=== PATIENT | female | born 1945 | race African-American/Black ===

== ENCOUNTER 2017-10-17 09:14 | Emergency (ER) | payer MEDICARE ==
[2017-10-17] MEDS ORDERED: IPRATROPIUM/ALBUTEROL 0.5-2.5 MG/3 ML AMPUL NEB ONE (09:35)
--- NOTE | 2017-10-17 09:40 | ER Document Report ---
ED Medical Screen (RME) - General Chief Complaint: Breathing Difficulty Stated Complaint: DIFFICULTY BREATHING Time Seen by Provider: 10/17/17 09:30 Mode of Arrival: Ambulatory Information source: Patient Notes: 72 yr old female presents with complaints of sob productive yellow cough over the past 5 days, admits to wheezing initial O2 was 92% but recheck noted 98% denies chest pain I have greeted and performed a rapid initial assessment of this patient. A comprehensive ED assessment and evaluation of the patient, analysis of test results and completion of the medical decision making process will be conducted by additional ED providers. PHYSICAL EXAMINATION: GENERAL: Well-appearing, well-nourished and in no acute distress. HEAD: Atraumatic, normocephalic. EYES: Pupils equal round extraocular movements intact, conjunctiva are normal. ENT: Nares patent NECK: Normal range of motion LUNGS: wheezing all throughout Musculoskeletal: Normal range of motion NEUROLOGICAL: Normal speech, normal gait. PSYCH: Normal mood, normal affect. SKIN: Warm, Dry, normal turgor, no rashes or lesions noted. - Related Data Allergies/Adverse Reactions: codeine Allergy (Verified 10/17/17 09:17) Past Medical History - Social History Chew tobacco use (# tins/day): No Frequency of alcohol use: None Drug Abuse: None - Past Medical History Cardiac Medical History: Reports: Hx Hypercholesterolemia, Hx Hypertension Pulmonary Medical History: Reports: Hx Bronchitis Renal/ Medical History: Denies: Hx Peritoneal Dialysis Musculoskeltal Medical History: Reports Hx Arthritis Physical Exam - Vital signs Vitals: Temp Pulse Resp BP Pulse Ox 98.2 F 80 15 153/93 H 95 10/17/17 09:20 10/17/17 09:20 10/17/17 09:20 10/17/17 09:20 10/17/17 09:20 Course - Vital Signs Vital signs: Temp Pulse Resp BP Pulse Ox 98.2 F 80 15 153/93 H 95 10/17/17 09:20 10/17/17 09:20 10/17/17 09:20 10/17/17 09:20 10/17/17 09:20
--- NOTE | 2017-10-17 10:04 | RADIOLOGY REPORT (SQ) ---
EXAM DESCRIPTION: CHEST SINGLE VIEW COMPLETED DATE/TIME: 10/17/2017 9:46 am REASON FOR STUDY: sob, hypoxemia COMPARISON: None. EXAM PARAMETERS: NUMBER OF VIEWS: One view. TECHNIQUE: Single frontal radiographic view of the chest acquired. RADIATION DOSE: NA LIMITATIONS: None. FINDINGS: LUNGS AND PLEURA: Questionable minimal increased density on the right raising the possibil ity of pneumonia. Remainder lungs are clear. No effusions. MEDIASTINUM AND HILAR STRUCTURES: No masses. Contour normal. HEART AND VASCULAR STRUCTURES: Cardiac silhouette is at the upper limits of normal in size. Vasculat ure is within normal limits. BONES: No acute findings. HARDWARE: None in the chest. OTHER: No other significant finding. IMPRESSION: Questionable minimal increased density on the right raising the possibility of pneumonia . TECHNICAL DOCUMENTATION: JOB ID: [id number] [employer]- All Rights Reserved Reading location - IP/workstation name: [email or web address]
[2017-10-17 10:18] LABS: ABSOLUTE EOSINOPHILS # (AUTO) 0.2 10^3/uL (0.0-0.6); ABSOLUTE LYMPHOCYTES (AUTO) 2.1 10^3/uL (0.5-4.7); ABSOLUTE MONOCYTES (AUTO) 0.5 10^3/uL (0.1-1.4); ABSOLUTE NEUT (AUTO) 2.3 10^3/uL (1.7-8.2); BASOPHILS % (AUTO) 0.8 % (0-2); HEMOGLOBIN 13.2 g/dL (12.0-15.5); LYMPHOCYTES % (AUTO) 41.5 % (13-45); MEAN CORPUSCULAR HEMOGLOBIN 27.6 pg (27.0-33.4); MEAN CORPUSCULAR VOLUME 84 fl (80-97); MONOCYTES % (AUTO) 9.8 % (3-13); PLATELET COUNT 212 10^3/uL (150-450); RED BLOOD COUNT 4.77 10^6/uL (3.72-5.28); RED CELL DISTRIBUTION WIDTH 14.7 % (11.5-14.0); SEGMENTED NEUTROPHILS % (AUTO) 44.9 % (42-78); TOTAL CELLS COUNTED % (AUTO) 100 %
[2017-10-17 10:24] LABS: APPEARANCE,URINE CLEAR; BILIRUBIN,URINE NEGATIVE (NEGATIVE); COLOR,URINE STRAW; GLUCOSE, URINE NEGATIVE (NEGATIVE); KETONES,URINE NEGATIVE (NEGATIVE); LEUKOCYTE ESTERASE,URINE TRACE (NEGATIVE); NITRITE,URINE NEGATIVE (NEGATIVE); PROTEIN,URINE NEGATIVE (NEGATIVE); URINE SPECIFIC GRAVITY 1.014; UROBILINOGEN,URINE NEGATIVE mg/dL (<2.0)
[2017-10-17 10:36] VITALS: BP 140/67
[2017-10-17 10:39] LABS: ALANINE AMINOTRANSFERASE 25 U/L (9-52); ALBUMIN 4.5 g/dL (3.5-5.0); ALKALINE PHOSPHATASE 78 U/L (38-126); ANION GAP 13 (5-19); ASPARTATE AMINO TRANSFERASE 23 U/L (14-36); BILIRUBIN,DIRECT 0.3 mg/dL (0.0-0.4); BILIRUBIN,TOTAL 0.5 mg/dL (0.2-1.3); BLOOD UREA NITROGEN 19 mg/dL (7-20); CALCIUM 10.6 mg/dL (8.4-10.2); CARBON DIOXIDE 26 mmol/L (22-30); CHLORIDE 106 mmol/L (98-107); CREATINE KINASE 72 U/L (30-135); GLUCOSE 118 mg/dL (75-110); POTASSIUM 4.4 mmol/L (3.6-5.0); TOTAL PROTEIN 7.5 g/dL (6.3-8.2)
[2017-10-17 10:51] LABS: NT PRO BNP 54 pg/mL (5-900); TROPONIN I < 0.012 ng/mL
--- NOTE | 2017-10-17 10:53 | ER Document Report ---
ED Respiratory Problem - General Chief Complaint: Breathing Difficulty Stated Complaint: DIFFICULTY BREATHING Time Seen by Provider: 10/17/17 09:30 Mode of Arrival: Ambulatory Notes: Patient is here because she has been experiencing a "terrible cold" for the past 6 or 7 days. She has had a productive cough, headache, sinus congestion. Has had some chills, but does not know if she has had any fever. Has had occasional chest pains during this week. Seems to be short of breath when she coughs. No history of blood clots. Patient has a history of hypertension and high cholesterol and prediabetic, but no history of any heart disease. Does not smoke. - Related Data Allergies/Adverse Reactions: codeine Allergy (Verified 10/17/17 09:17) Past Medical History - General Information source: Patient - Social History Smoking Status: Never Smoker Chew tobacco use (# tins/day): No Frequency of alcohol use: None Drug Abuse: None Family History: Reviewed & Not Pertinent Patient has suicidal ideation: No Patient has homicidal ideation: No - Past Medical History Cardiac Medical History: Reports: Hx Hypercholesterolemia, Hx Hypertension Pulmonary Medical History: Reports: Hx Bronchitis Musculoskeltal Medical History: Reports Hx Arthritis Review of Systems - Review of Systems Notes: REVIEW OF SYSTEMS: CONSTITUTIONAL : Denies fever. EENT: Other than sinus congestion, patient denies eye, ear, nose or mouth or throat pain or other symptoms. CARDIOVASCULAR: Denies chest pain. RESPIRATORY: See HPI. GASTROINTESTINAL: Denies abdominal pain or nausea, vomiting, or diarrhea. GENITOURINARY: Denies difficulty or painful urinating, urinary frequency, blood in urine. MUSCULOSKELETAL: Denies back or neck pain. Denies joint pain or swelling. Denies swelling or pain of lower extremities.. SKIN: Denies rash or skin lesions. NEUROLOGICAL: Denies LOC or altered mental status. Denies headache. Denies sensory loss or motor deficits. ALL OTHER SYSTEMS REVIEWED AND NEGATIVE. Physical Exam - Vital signs Vitals: Temp Pulse Resp BP Pulse Ox 98.2 F 80 15 153/93 H 92 10/17/17 09:20 10/17/17 09:20 10/17/17 09:20 10/17/17 09:20 10/17/17 09:20 Interpretation: Normal - Notes Notes: PHYSICAL EXAMINATION: GENERAL: Well-appearing, in no acute distress. Vital signs are all essentially normal. HEAD: Atraumatic, normocephalic. EYES: Pupils equal round and reactive to light, extraocular movements intact. ENT: oropharynx clear without exudates. Moist mucous membranes. NECK: Normal range of motion, supple. LUNGS: Breath sounds clear and equal bilaterally. No wheezes. HEART: Regular rate and rhythm without murmurs. ABDOMEN: Soft, nontender. No guarding or rebound. No masses. BACK: No tenderness throughout entire back. EXTREMITIES: Normal range of motion without pain. Negative Homans bilaterally. NEUROLOGICAL: Normal speech, normal gait. Normal sensory, motor, and reflex exams. Awake, alert, and oriented x3. Cranial nerves normal. PSYCH: Normal mood, normal affect. SKIN: Warm, dry, no rashes. Course - Vital Signs Vital signs: Temp Pulse Resp BP Pulse Ox 98.2 F 80 14 140/67 H 96 10/17/17 09:20 10/17/17 09:20 10/17/17 10:04 10/17/17 10:04 10/17/17 10:36 - Laboratory Result Diagrams: 10/17/17 09:50 10/17/17 09:50 Laboratory results interpreted by me: 10/17/17 10/17/17 10/17/17 09:41 09:50 09:50 RDW 14.7 H Est GFR (Non-Af Amer) 50 L Glucose 118 H Calcium 10.6 H Ur Leukocyte Esterase TRACE H - Diagnostic Test Radiology reviewed: Image reviewed, Reports reviewed - Chest x-ray shows questionable minimal increased density in the right raising possibility of pneumonia, according to the radiologist. - EKG Interpretation by [facility] EKG shows normal: Sinus rhythm Rate: Normal Rhythm: NSR Voltage: Consistant with LVH Discharge - Discharge Clinical Impression: Pneumonia Condition: Stable Disposition: HOME, SELF-CARE Additional Instructions: PNEUMONIA: Your examination indicates that you have pneumonia. This is an infection of the lung tissue, usually caused by bacteria or a virus. Symptoms include cough, fever, shaking chills, chest pain, shortness of breath, and coughing up bloody sputum. Treatment for bacterial pneumonia includes rest, antibiotics for 10 to 14 days, increasing your clear liquid intake, a cool mist humidifier at your bedside, and fever medication. Often, a repeat chest X-ray is performed in a few weeks--even if you feel better--to ascertain whether the infection has completely resolved and no underlying lung problem is present. You should call the physician if you develop persistent vomiting, high fever that does not respond to fever medication, increasing shortness of breath , confusion, or lethargy. Also, failure to improve within two to three days is an indication for re-examination. ANTIBIOTIC THERAPY: You have been given an antibiotic prescription. It's important that you take all the medication, unless instructed otherwise by your physician. Failure to complete the entire course can result in relapse of your condition. Common side effects of antibiotics include nausea, intestinal cramping, or diarrhea. Women may develop vaginal yeast infections, and babies can get yeast (thrush) in the mouth following the use of antibiotics. Contact your physician if you develop significant side effects from this medication. Allergy to this antibiotic can result in hives, wheezing, faintness, or itching. If symptoms of allergy occur, stop the medication and call the doctor. AZITHROMYCIN: Azithromycin (Zithromax) is a broad spectrum antibiotic in the same class as erythromycin. It can treat a variety of bacterial infections, but is most frequently used for respiratory infections. Azithromycin is extremely long-lasting. It accumulates in body tissues and continues to kill bacteria for many days. In order to improve absorption, Azithromycin should be taken at least one hour before or two hours after a meal. It does not have the same strong tendency to upset the stomach as erythromycin and is usually very well tolerated. Patients who have had a rash or other true allergic reactions to erythromycin should not take this medication. Call if you develop gastrointestinal distress, severe diarrhea, rash, hives, itching, or shortness of breath. USE OF ACETAMINOPHEN (Tylenol): Acetaminophen may be taken for pain relief or fever control. It's much safer than aspirin, offering a wider range of "safe" dosages. It is safe during . Some brand names are Tylenol, Panadol, Datril, Anacin 3, Tempra, and Liquiprin. Acetaminophen can be repeated every four hours. The following are maximum recommended dosages: WEIGHT Dose Drops Elixir Chewable( 80mg) (LBS.) drprs=droppers tsp=teaspoon >89 pounds or adults 650 mg to 900 mg Acetaminophen can be repeated every four hours. Maximum dose not to exceed 4000 mg a day. These maximum recommended dosages are slightly higher than the dosages written on the product container, but these dosages are very safe and below the toxic dosage for acetaminophen. FOLLOW-UP CARE: If you have been referred to a physician for follow-up care, call the physician s office for an appointment as you were instructed or within the next two days. If you experience worsening or a significant change in your symptoms, notify the physician immediately or return to the Emergency Department at any time for re-evaluation. Prescriptions: Azithromycin [Zithromax 250 mg Tablet] 250 mg PO ASDIR PRN #6 tablet PRN Reason:
--- NOTE | 2017-10-17 15:50 | EKG REPORT ---
SEVERITY:- ABNORMAL ECG - SINUS RHYTHM LEFT VENTRICULAR HYPERTROPHY : Confirmed by: Navarro Thurman 17-Oct-2017 15:50:19
== END 2017-10-17 11:37 | disposition home or self-care (01) ==
LOC: ER 09:14
DX: J18.9 Pneumonia, unspecified organism (principal); R05 Cough; R51 Headache; R09.81 Nasal congestion; R68.83 Chills (without fever); R07.9 Chest pain, unspecified; I10 Essential (primary) hypertension; Z88.5 Allergy status to narcotic agent
CPT/HCPCS: 93005; 94640; 99285; 36415; 87040; 82553; 82550; 85025; 80053; 81001; 84484; 83880; 71045; 93010; A9270; J7620

== ENCOUNTER 2018-01-29 11:36 | Emergency (ER) | payer MEDICARE ==
[2018-01-29] MEDS ORDERED: IBUPROFEN 800 MG TABLET PO ONE (11:50)
--- NOTE | 2018-01-29 11:56 | ER Document Report ---
ED Hand/Wrist Injury - General Chief Complaint: Finger Injury Stated Complaint: FINGER PAIN Time Seen by Provider: 01/29/18 11:45 Mode of Arrival: Ambulatory Information source: Patient Notes: 72-year-old female presents to ED for complaint of pain and swelling to the third and fourth visit finger on the right hand. She states she was trying to shut the garage door when her finger got caught in the slots. Fingers are very bruised and swollen and tender from first PIP joint to the end of the finger. Patient is alert and oriented respirations regular and unlabored speaking in full sentences walks with a even steady gait. TRAVEL OUTSIDE OF THE [place] IN LAST 30 DAYS: No - HPI Injury to: Middle finger, Ring finger Onset: Yesterday Where: Home, Outdoors Timing: Still present Quality of pain: Pressure, Sharp, Throbbing Severity: Moderate Pain Level: 4 Context: Crush - Related Data Allergies/Adverse Reactions: codeine Allergy (Verified 01/29/18 11:37) Past Medical History - General Information source: Patient - Social History Smoking Status: Never Smoker Cigarette use (# per day): No Chew tobacco use (# tins/day): No Smoking Education Provided: No Frequency of alcohol use: None Drug Abuse: None Occupation: retired Lives with: Alone Family History: Reviewed & Not Pertinent Patient has suicidal ideation: No Patient has homicidal ideation: No - Past Medical History Cardiac Medical History: Reports: Hx Hypercholesterolemia, Hx Hypertension Pulmonary Medical History: Reports: Hx Bronchitis, Hx Pneumonia EENT Medical History: Reports: None Neurological Medical History: Reports: None Endocrine Medical History: Reports: None Renal/ Medical History: Reports: Hx Kidney Stones Malignancy Medical History: Reports: None GI Medical History: Reports: None Musculoskeletal Medical History: Reports Hx Arthritis Skin Medical History: Reports None Psychiatric Medical History: Reports: None Traumatic Medical History: Reports: None Infectious Medical History: Reports: None Past Surgical History: Reports: Hx Hysterectomy Review of Systems - Review of Systems Constitutional: No symptoms reported EENT: No symptoms reported Cardiovascular: No symptoms reported Respiratory: No symptoms reported Gastrointestinal: No symptoms reported Genitourinary: No symptoms reported Female Genitourinary: No symptoms reported Musculoskeletal: Other - Very dark bruised third and fourth finger on right hand from the first PIP down to the tip of the finger Skin: No symptoms reported Hematologic/Lymphatic: No symptoms reported Neurological/Psychological: No symptoms reported -: Yes All other systems reviewed and negative Physical Exam - Vital signs Vitals: Temp Pulse Resp BP Pulse Ox 97.7 F 61 16 162/64 H 95 01/29/18 11:43 01/29/18 11:43 01/29/18 11:43 01/29/18 11:43 01/29/18 11:43 Interpretation: Normal - General General appearance: Appears well, Alert - HEENT Head: Normocephalic, Atraumatic Eyes: Normal Pupils: PERRL - Respiratory Respiratory status: No respiratory distress Chest status: Nontender Breath sounds: Normal Chest palpation: Normal - Cardiovascular Rhythm: Regular Heart sounds: Normal auscultation Murmur: No - Abdominal Inspection: Normal Distension: No distension Bowel sounds: Normal Tenderness: Nontender Organomegaly: No organomegaly - Back Back: Normal, Nontender - Extremities General upper extremity: Normal ROM, Normal temperature General lower extremity: Normal inspection, Nontender, Normal color, Normal ROM , Normal temperature, Normal weight bearing. No: Brenden's sign Hand: Tender, Ecchymosis - From the first PIP of the third and fourth finger to the tip of the finger, Nail injury, No evidence of human bite - Neurological Neuro grossly intact: Yes Cognition: Normal Orientation: AAOx4 Florinda Coma Scale Eye Opening: Spontaneous Florinda Coma Scale Verbal: Oriented Florinda Coma Scale Motor: Obeys Commands Florinda Coma Scale Total: 15 Speech: Normal Motor strength normal: LUE, RUE, LLE, RLE Sensory: Normal - Psychological Associated symptoms: Normal affect, Normal mood - Skin Skin Temperature: Warm Skin Moisture: Dry Skin Color: Normal Course - Re-evaluation Re-evalutation: 01/29/18 20:36 X-ray was negative to the right hand. There are no fractures or other bony abnormalities noted. She did have very contused third and fourth fingers to the right hand. I did have Dr. Stokes come and look at the fingers as they were so dark. Stated she just needed to elevate and ice the fingers and follow-up with orthopedics if pain became unbearable. There is no subungual hematoma noted on either finger. Patient was treated with ibuprofen in the emergency room and discharged home with instructions for elevation ice ibuprofen for her pain and follow-up with primary doctor and orthopedics. - Vital Signs Vital signs: Temp Pulse Resp BP Pulse Ox 97.4 F 55 L 20 181/59 H 95 01/29/18 13:09 01/29/18 13:09 01/29/18 13:09 01/29/18 13:09 01/29/18 13:09 - Diagnostic Test Radiology reviewed: Image reviewed, Reports reviewed Discharge - Discharge Clinical Impression: crush to right 3rd finger, crushed 4th right finger Condition: Stable Disposition: HOME, SELF-CARE Additional Instructions: Crush Injury Your injury caused a crushing of the tissues. Crush injuries can include skin damage, bleeding within the tissues (hematoma), and muscle injury. Sometimes the crushing damages a nerve or artery. This usually heals without surgery. If there's a break in the skin with the crushing, it's more prone to infection and takes longer to heal than other cuts. Crush injuries may take a long time to heal. In severe cases, there may be actual of tissues -- for example, the skin may turn black and become a "scab." Crush injuries vary in the amount of pain they cause, and in the length of time required for healing. Typically, the area will become bruised, and will remain painful to touch for two or three weeks. However, most patients are back to working and playing within a few days. After the initial period of rest, elevation, and cold-packs, your symptoms (together with the doctor's recommendations) will determine how rapidly you can get back to full activity. Usually this means "do what feels okay, but don't do things that hurt." If re-examination was recommended, it's important to follow up as instructed. Call the doctor or return any time if pain increases, if swelling becomes severe, if you develop numbness or weakness in an injured extremity, or if any other alarming symptoms occur. ICE & ELEVATION: Apply ice packs frequently against the painful area. Many different schedules are recommended, such as "20 minutes on, 20 minutes off" or "one hour ice, two hours rest." If you need to work, you may need to go longer between ice treatments. You should plan to have the area ice packed AT LEAST one- fourth of the time. The ice should be applied over the wrap, tape, or splint, or over a layer of cloth -- not directly against the skin. Some ice bags have a built-in cloth and can be put directly on the skin. Your injured part should be elevated as much as possible over the next 48 hours. Try to keep the injury above the level of the heart. Avoid use of the injured area. Elevation and rest will decrease the swelling. USE OF [id number] IBUPROFEN: Ibuprofen (Advil, Nuprin, Medipren, Motrin IB) is a medication for fever and pain control. In addition, it has anti- inflammatory effects which may be beneficial, especially in the treatment of injuries. It's best to take ibuprofen with food. Persons with ulcer disease or allergy to aspirin should notify their physician of this before taking ibuprofen. Ibuprofen can be given every four to six hours, for a total of four doses daily. Age Pain or fever dose Antiinflammatory dose 6-8 yr 200 mg (1 tab) 200 mg (1 tab) 9-11 yr 200 mg (1 tab) 200-400 mg (1-2 tab) 11-14 yr 200-400 mg (1-2 tab) 400 mg (2 tab) 15-adult 400 mg (2 tab) 600 mg (3 tab) Acetaminophen Acetaminophen may be taken for pain relief or fever control. It's much safer than aspirin, offering a wider range of "safe" dosages. It is safe during . Some brand names are Tylenol, Panadol, Datril, Anacin 3, Tempra, and Liquiprin. Acetaminophen can be repeated every four hours. The following are maximum recommended dosages: WEIGHT Dose Drops Elixir Chewable( 80mg) (LBS.) drprs=droppers tsp=teaspoon 6 40 mg .4 ml (1/2) 6-11 80 mg .8 ml (full) 1/2 tsp 1 tab 12-16 120 mg 1 1/2 drprs 3/4 tsp 1 1/2 tabs 17-23 160 mg 2 drprs 1 tsp 2 tabs 24-30 240 mg 3 drprs 1 1/2 tsp 3 tabs 30-35 320 mg 2 tsp 4 tabs 36-41 360 mg 2 1/4 tsp 4 1 /2 tabs 42-47 400 mg 2 1/2 tsp 5 tabs 48-53 480 mg 3 tsp 6 tabs 54-59 520 mg 3 1/4 tsp 6 1 /2 tabs 60-64 560 mg 3 1/2 tsp 7 tabs 65-70 600 mg 3 3/4 tsp 7 1 /2 tabs 71-76 640 mg 4 tsp 8 tabs 77-82 720 mg 4 1/2 tsp 9 tabs 83-88 800 mg 5 tsp 10 tabs >89 pounds or adults 650 mg to 900 mg Acetaminophen can be repeated every four hours. Maximum daily dose not to exceed 4000 mg. These maximum recommended dosages are slightly higher than the dosages written on the product container, but these dosages are very safe and well below the toxic dosage for acetaminophen. FOLLOW-UP CARE: If you have been referred to a physician for follow-up care, call the physician s office for an appointment as you were instructed or within the next two days. If you experience worsening or a significant change in your symptoms, notify the physician immediately or return to the Emergency Department at any time for re-evaluation. Referrals: DILCIA PISANO MD [Primary Care Provider] - Follow up as needed CHAPIS SALCIDO MD [ACTIVE STAFF] - Follow up as needed
--- NOTE | 2018-01-29 12:41 | RADIOLOGY REPORT (SQ) ---
EXAM DESCRIPTION: HAND RIGHT 3 VIEWS COMPLETED DATE/TIME: 01/29/2018 12:22 pm REASON FOR STUDY: injury garage door caught 3 and 4th finger 3rd and 4th finger smashed in garage do or today COMPARISON: None. EXAM PARAMETERS: NUMBER OF VIEWS: Three views. TECHNIQUE: AP, lateral and oblique radiographic images acquired of the right hand. LIMITATIONS: None. FINDINGS: MINERALIZATION: Normal. BONES: No acute fracture or dislocation. No worrisome bone lesions. JOINTS: No effusions. SOFT TISSUES: No soft tissue swelling. No foreign body. OTHER: No other significant finding. IMPRESSION: NEGATIVE STUDY OF THE RIGHT HAND. NO RADIOGRAPHIC EVIDENCE OF ACUTE INJURY. TECHNICAL DOCUMENTATION: JOB ID: [id number] [employer]- All Rights Reserved Reading location - IP/workstation name: [email or web address]
[2018-01-29 13:13] VITALS: BP 181/59
== END 2018-01-29 13:13 | disposition home or self-care (01) ==
LOC: ER 11:36
DX: S67.192A Crushing injury of right middle finger, initial encounter (principal); S67.194A Crushing injury of right ring finger, initial encounter; W23.1XXA Caught, crushed, jammed, or pinched between stationary objects, initial encounter; Y92.099 Unspecified place in other non-institutional residence as the place of occurrence of the external cause; E78.00 Pure hypercholesterolemia, unspecified; I10 Essential (primary) hypertension; Z88.6 Allergy status to analgesic agent
CPT/HCPCS: 99283; 73130; A9270

== ENCOUNTER 2018-07-19 20:17 | Inpatient (IN) | payer MEDICARE ==
[2018-07-19] MEDS ORDERED: FENTANYL CITRATE INJ/PF 100 MCG/2 ML AMPUL IV ONE ×2 (21:02→23:32)
[2018-07-19 21:25] LABS: APPEARANCE,URINE CLEAR; BILIRUBIN,URINE NEGATIVE (NEGATIVE); COLOR,URINE YELLOW; GLUCOSE, URINE NEGATIVE (NEGATIVE); KETONES,URINE NEGATIVE (NEGATIVE); LEUKOCYTE ESTERASE,URINE MODERATE (NEGATIVE); NITRITE,URINE NEGATIVE (NEGATIVE); PROTEIN,URINE NEGATIVE (NEGATIVE); URINE SPECIFIC GRAVITY 1.013; UROBILINOGEN,URINE NEGATIVE mg/dL (<2.0)
[2018-07-19 21:29] LABS: ABSOLUTE EOSINOPHILS # (AUTO) 0.1 10^3/uL (0.0-0.6); ABSOLUTE LYMPHOCYTES (AUTO) 1.9 10^3/uL (0.5-4.7); ABSOLUTE MONOCYTES (AUTO) 0.7 10^3/uL (0.1-1.4); BASOPHILS % (AUTO) 0.4 % (0-2); EOSINOPHILS % (AUTO) 1.2 % (0-6); HEMATOCRIT 39.1 % (36.0-47.0); LYMPHOCYTES % (AUTO) 24.5 % (13-45); MEAN CORPUSCULAR HEMOGLOBIN 28.1 pg (27.0-33.4); MEAN CORPUSCULAR HGB CONC 33.2 g/dL (32.0-36.0); MEAN CORPUSCULAR VOLUME 85 fl (80-97); MONOCYTES % (AUTO) 9.2 % (3-13); PLATELET COUNT 216 10^3/uL (150-450); RED BLOOD COUNT 4.62 10^6/uL (3.72-5.28); RED CELL DISTRIBUTION WIDTH 14.6 % (11.5-14.0); SEGMENTED NEUTROPHILS % (AUTO) 64.7 % (42-78); TOTAL CELLS COUNTED % (AUTO) 100 %; WHITE BLOOD COUNT 7.7 10^3/uL (4.0-10.5)
[2018-07-19 21:48] LABS: ALANINE AMINOTRANSFERASE 21 U/L (9-52); ALKALINE PHOSPHATASE 77 U/L (38-126); ANION GAP 9 (5-19); ASPARTATE AMINO TRANSFERASE 20 U/L (14-36); BILIRUBIN,TOTAL 0.3 mg/dL (0.2-1.3); BLOOD UREA NITROGEN 16 mg/dL (7-20); CALCIUM 10.5 mg/dL (8.4-10.2); CARBON DIOXIDE 28 mmol/L (22-30); CHLORIDE 105 mmol/L (98-107); GLUCOSE 113 mg/dL (75-110); LIPASE 50.2 U/L (23-300); TOTAL PROTEIN 6.9 g/dL (6.3-8.2)
--- NOTE | 2018-07-19 22:46 | RADIOLOGY REPORT (SQ) ---
EXAM DESCRIPTION: CT ABDOMEN PELVIS WITH IV CONTRAST COMPLETED DATE/TME: 07/19/2018 21:02 CLINICAL HISTORY: 72 years, Female, RLQ LLQ pain COMPARISON: None. TECHNIQUE: 373 Images stored on PACS. All CT scanners at this facility use dose modulation, iterative reconstruction, and/or weight based dosing when appropriate to reduce radiation dose to as low as reasonably achievable (ALARA). [facility]: Dose Right [facility]: CareDose [facility]: Dose Right [facility]: Teradose 4D [facility]: CareParent LIMITATIONS: None. FINDINGS: Visualized lung bases are unremarkable. Osseous structures are grossly intact. The liver, spleen, adrenal glands, pancreas, right kidney are unremarkable. Cholelithiasis. Severe left renal atrophy. No gross evidence for bowel obstruction. Normal appendix. No free air or free fluid. However, there is abnormal wall thickening of the sigmoid colon with surrounding inflammatory change. Several diverticuli are noted and this likely reflects acute diverticulitis. Questionable tiny developing abscess measuring 10 x 10 mm versus an irregular area of wall thickening with enhancement. IMPRESSION: Acute sigmoid diverticulitis. Questionable tiny developing abscess, as above. Cholelithiasis. Severe left renal atrophy.. TECHNICAL DOCUMENTATION: Quality ID # [id number]: Final reports with documentation of one or more dose reduction techniques (e.g., Automated exposure control, adjustment of the mA and/or kV according to patient size, use of iterative reconstruction technique) copyright 2011 [employer]- All Rights Reserved
[2018-07-19] MEDS ORDERED: RINGERS SOLUTION,LACTATED 1,000 ML IV ONE (23:33)
[2018-07-19] MEDS ORDERED: ZOLPIDEM TARTRATE 5 MG TABLET PO PRN (23:34)
[2018-07-19] MEDS ORDERED: ACETAMINOPHEN 650 MG SUPP.RECT PR PRN (23:34)
[2018-07-19] MEDS ORDERED: MAGNESIUM HYDROXIDE SUSP 30 ML UDCUP PO PRN (23:34)
[2018-07-19] MEDS ORDERED: MAG HYDROX/AL HYDROX/SIMETH SUSP 30 ML UDCUP PO PRN (23:34)
--- NOTE | 2018-07-19 23:34 | ER Document Report ---
ED General - General Chief Complaint: Abdominal Pain Stated Complaint: SEVERE ABDOMINAL/BACK PAIN,BLOOD IN URINE Time Seen by Provider: 07/19/18 20:49 Notes: Patient 72-year-old female presents to the emergency department for 2 days of bilateral lower back pain bilateral lower quadrant abdominal pain. Patient's denying any nausea, vomiting, diarrhea, denying any fevers. Patient is admitting to some urinary frequency but is denying dysuria or vaginal discharge. Patient's denying any injury states she does have a history of kidney and dulce maria drake did not presents to the emergency department because she thought this was just her kidney stones acting up. Past medical history: Kidney stones, hypertension, hyperlipidemia Medications: Verapamil, Crestor, aspirin Allergies: Codeine, latex Surgical history: Hysterectomy TRAVEL OUTSIDE OF THE [place] IN LAST 30 DAYS: No - Related Data Allergies/Adverse Reactions: codeine Allergy (Verified 01/29/18 11:37) latex Allergy (Verified 07/19/18 20:21) Past Medical History - General Information source: Patient - Social History Smoking Status: Never Smoker Family History: Reviewed & Not Pertinent Patient has suicidal ideation: No Patient has homicidal ideation: No - Past Medical History Cardiac Medical History: Reports: Hx Hypercholesterolemia, Hx Hypertension Pulmonary Medical History: Reports: Hx Bronchitis, Hx Pneumonia Renal/ Medical History: Reports: Hx Kidney Stones. Denies: Hx Peritoneal Dialysis Musculoskeletal Medical History: Reports Hx Arthritis Past Surgical History: Reports: Hx Hysterectomy Review of Systems - Review of Systems Constitutional: See HPI EENT: No symptoms reported Cardiovascular: No symptoms reported Respiratory: No symptoms reported Gastrointestinal: See HPI Genitourinary: See HPI Female Genitourinary: No symptoms reported Musculoskeletal: No symptoms reported Skin: No symptoms reported Hematologic/Lymphatic: No symptoms reported Neurological/Psychological: No symptoms reported Physical Exam - Vital signs Vitals: Temp Pulse Resp BP Pulse Ox 98.6 F 77 15 162/77 H 96 07/19/18 20:25 07/19/18 20:25 07/19/18 20:25 07/19/18 20:25 07/19/18 20:25 - Notes Notes: GENERAL: Alert, interacts well. No acute distress. HEAD: Normocephalic, atraumatic. EYES: Pupils equal, round, and reactive to light. Extraocular movements intact. ENT: Oral mucosa moist, tongue midline. NECK: Full range of motion. Supple. Trachea midline. LUNGS: Clear to auscultation bilaterally, no wheezes, rales, or rhonchi. No respiratory distress. HEART: Regular rate and rhythm. No murmur ABDOMEN: Soft, Non-distended. Bowel sounds present in all 4 quadrants. Generalized tenderness noted right and left lower quadrants. No Linton sign not ed. EXTREMITIES: Moves all 4 extremities spontaneously. No edema, normal radial and dorsalis pedis pulses bilaterally. No cyanosis. BACK: no cervical, thoracic, lumbar midline tenderness. No saddle anesthesia, normal distal neurovascular exam. No CVA tenderness noted bilaterally NEUROLOGICAL: Alert and oriented x3. Normal speech. cranial nerves II through XII grossly intact PSYCH: Normal affect, normal mood. SKIN: Warm, dry, normal turgor. No rashes or lesions noted. Course - Re-evaluation Re-evalutation: Patient's labs show no signs of leukocytosis, no signs of anemia, patient's urine was for culture to rule out infection. Patient's CT abdomen pelvis shows acute sigmoid diverticulitis with questionable 10 mm x 10 mm abscess formation. Initially discussed this case with surgeon Dr. Constantino states he feels like this could be a medical admission. He has seen the patient in the emergency department and is available for consult. Discussed this case with the hospitalist Dr. Erwin who will admit the patient for IV antibiotics, continued pain control and repeat surgical consult if needed. Patient remains afebrile, non-tachycardic, stable for admission. - Vital Signs Vital signs: Temp Pulse Resp BP Pulse Ox 98.7 F 78 18 158/75 H 97 07/20/18 00:00 07/20/18 00:00 07/20/18 00:00 07/20/18 00:00 07/20/18 00:00 - Laboratory Result Diagrams: 07/19/18 21:20 07/19/18 21:20 Laboratory results interpreted by me: 07/19/18 07/19/18 07/19/18 20:58 21:20 21:20 RDW 14.6 H Est GFR (Non-Af Amer) 55 L Glucose 113 H Calcium 10.5 H Ur Leukocyte Esterase MODERATE H Discharge - Discharge Clinical Impression: Diverticulitis Condition: Stable Disposition: ADMITTED INPATIENT Admitting Provider: Hospitalist - Dr. Erwin Unit Admitted: Medical Floor
[2018-07-19] MEDS ORDERED: BENZONATATE 100 MG CAPSULE PO PRN (23:44)
[2018-07-19] MEDS ORDERED: ONDANSETRON 4 MG TAB.RAPDIS PO PRN (23:44)
--- NOTE | 2018-07-20 00:13 | PDOC CONSULTATION ---
Consultation Consult Date: 07/20/18 Consult reason:: diverticulitis History of Present Illness Admission Date/PCP: 07/19/18 23:37 DILCIA PISANO MD History of Present Illness: PENELOPE FOWLER is a 72 year old female with 3 or days of lower abd pain and back pain c/o chills. thought she was having a recurrrent kidney stone. Past Medical History Cardiac Medical History: Reports: Hyperlipidema, Hypertension Pulmonary Medical History: Reports: Bronchitis, Pneumonia Musculoskeltal Medical History: Reports: Arthritis Hematology: Reports: Anemia - iron deficient Past Surgical History Past Surgical History: Reports: Hysterectomy Social History Smoking Status: Never Smoker Family History Family History: Reviewed & Not Pertinent Parental Family History Reviewed: No Children Family History Reviewed: No Sibling(s) Family History Reviewed.: No Medication/Allergy Home Medications: Azithromycin [Zithromax 250 mg Tablet] 250 mg PO ASDIR PRN #6 tablet 10/17/17 Verapamil HCl [Verapamil ER] 120 mg PO DAILY 10/17/17 Azithromycin 250 mg PO DAILY #1 tablet 10/18/17 Ondansetron [Zofran Odt 4 mg Tablet] 1 - 2 tab PO Q4H PRN #15 tab.rapdis 10/18/17 Benzonatate [Tessalon Perle 100 mg Capsule] 200 mg PO Q8HP PRN #20 cap 01/04/18 Fluticasone Propionate [Flonase Nasal [place] 50 Mcg/[place] 16 gm] 1 spray NASL Q12 #1 inhaler 01/04/18 Allergies/Adverse Reactions: codeine Allergy (Verified 01/29/18 11:37) latex Allergy (Verified 07/19/18 20:21) Review of Systems Constitutional: PRESENT: weakness Respiratory: PRESENT: other - no cough, no sob Gastrointestinal: PRESENT: other - lower abd pain, no diarrhea or constipation Genitourinary: PRESENT: other - no dysuria or pneumoturia Musculoskeletal: PRESENT: back pain Integumentary: PRESENT: other - no rash, Neurological: PRESENT: other - no weakness, no headaches. Endocrine: PRESENT: other - no cold or heat intolerance Hematologic/Lymphatic: PRESENT: other - no easy brusing Physical Exam Vital Signs: Temp Pulse Resp BP Pulse Ox 98.6 F 77 15 162/77 H 96 07/19/18 20:25 07/19/18 20:25 07/19/18 20:25 07/19/18 20:25 07/19/18 20:25 Intake & Output 07/18/18 07/19/18 07/20/18 06:59 06:59 06:59 Weight 78.8 kg General appearance: PRESENT: no acute distress, mild distress Head exam: PRESENT: normocephalic Eye exam: PRESENT: conjunctiva pink, EOMI Mouth exam: PRESENT: moist Neck exam: PRESENT: full ROM Respiratory exam: PRESENT: clear to auscultation rainer Cardiovascular exam: PRESENT: RRR Pulses: PRESENT: +2 pedal pulses bilateral GI/Abdominal exam: PRESENT: other - tender lower minline and left lower quadrent no rebound tenderness, no masses Extremities exam: PRESENT: full ROM Musculoskeletal exam: PRESENT: ambulatory, full ROM Neurological exam: PRESENT: alert, awake, oriented to person, oriented to place, oriented to time, oriented to situation Psychiatric exam: PRESENT: appropriate affect Skin exam: PRESENT: dry Results Laboratory Results: 07/19/18 21:20 07/19/18 21:20 07/19/18 07/19/18 07/19/18 20:58 21:20 21:20 WBC 7.7 RBC 4.62 Hgb 13.0 Hct 39.1 MCV 85 MCH 28.1 MCHC 33.2 RDW 14.6 H Plt Count 216 Seg Neutrophils % 64.7 Lymphocytes % 24.5 Monocytes % 9.2 Eosinophils % 1.2 Basophils % 0.4 Absolute Neutrophils 5.0 Absolute Lymphocytes 1.9 Absolute Monocytes 0.7 Absolute Eosinophils 0.1 Absolute Basophils 0.0 Sodium 142.0 Potassium 4.0 Chloride 105 Carbon Dioxide 28 Anion Gap 9 BUN 16 Creatinine 0.99 Est GFR ( Amer) > 60 Est GFR (Non-Af Amer) 55 L Glucose 113 H Calcium 10.5 H Total Bilirubin 0.3 AST 20 ALT 21 Alkaline Phosphatase 77 Total Protein 6.9 Albumin 4.0 Lipase 50.2 Urine Color YELLOW Urine Appearance CLEAR Urine pH 7.0 Ur Specific [place] 1.013 Urine Protein NEGATIVE Urine Glucose (UA) NEGATIVE Urine Ketones NEGATIVE Urine Blood NEGATIVE Urine Nitrite NEGATIVE Ur Leukocyte Esterase MODERATE H Urine WBC (Auto) 10 Urine RBC (Auto) 1 Impressions: Abdomen/Pelvis CT 07/19/18 21:02 IMPRESSION: Acute sigmoid diverticulitis. Questionable tiny developing abscess, as above. Cholelithiasis. Severe left renal atrophy.. TECHNICAL DOCUMENTATION: Quality ID # [id number]: Final reports with documentation of one or more dose reduction techniques (e.g., Automated exposure control, adjustment of the mA and/or kV according to patient size, use of iterative reconstruction technique) copyright 2011 [employer] All Rights Reserved Status: Image reviewed by me - 3cm llq abscess with stranding c/w diverticular abscess no evidence of obstruction Assessment & Plan - Plan Summary Plan Summary: impression diverticular abscess, first episode no obstruction recommend admit for iv abx. if pain resolves in 1-2 days, could be discharged home with completion of 10 day course of po abx will then need contrast study (BE) in 6 wks then colonoscopy. will follow with medicine.
[2018-07-20] MEDS ORDERED: METRONIDAZOLE 500 MG/NS RTU 500 MG/100 ML RTUPB IV ONE (00:30)
[2018-07-20] MEDS ORDERED: OXYCODONE-ACETAMINOPHEN 5-325 MG TABLET PO PRN (00:44)
--- NOTE | 2018-07-20 01:02 | PDOC H&P ---
History of Present Illness Admission Date/PCP: 07/19/18 23:37 DILCIA PISANO MD Patient complains of: Abdominal pain History of Present Illness: PENELOPE FOWLER is a 72 year old female with a history of hypertension and dyslipidemia who presented to the emergency room with acute onset of lower abdominal pain mainly in the left lower quadrant with associated loose bowel movements as well as chills for the last 3 days. She denies any measured fever. She has been noticing minor bleeding with her symptoms with no melena. Upon presentation to the emergency room her blood pressure was elevated 162/77 with otherwise normal vital signs. She was afebrile. Labs showed normal CBC and her calcium was 10.5. Urinalysis showed moderate leukocyte esterase and 10 WBCs. Her abdominal pelvic CT scan revealed acute sigmoid duct colitis with possibly tiny abscess measuring 10 mm x 10 mm She was given 50 mcg of IV fentanyl and a liter bolus of IV lactated Ringer. She was ordered IV Rocephin and Flagyl. She will be admitted to medical monitored bed for further evaluation and management.. Past Medical History Cardiac Medical History: Reports: Hyperlipidema, Hypertension Pulmonary Medical History: Reports: Bronchitis, Pneumonia Musculoskeltal Medical History: Reports: Arthritis Hematology: Reports: Anemia - iron deficient Past Surgical History Past Surgical History: Reports: Hysterectomy, Tonsillectomy Social History Smoking Status: Never Smoker Frequency of Alcohol Use: None Hx Recreational Drug Use: No Family History Family History: DM, Hypertension Parental Family History Reviewed: Yes Children Family History Reviewed: Yes Sibling(s) Family History Reviewed.: Yes Medication/Allergy Home Medications: Azithromycin [Zithromax 250 mg Tablet] 250 mg PO ASDIR PRN #6 tablet 10/17/17 Verapamil HCl [Verapamil ER] 120 mg PO DAILY 10/17/17 Azithromycin 250 mg PO DAILY #1 tablet 10/18/17 Ondansetron [Zofran Odt 4 mg Tablet] 1 - 2 tab PO Q4H PRN #15 tab.rapdis 10/18/17 Benzonatate [Tessalon Perle 100 mg Capsule] 200 mg PO Q8HP PRN #20 cap 01/04/18 Fluticasone Propionate [Flonase Nasal [place] 50 Mcg/[place] 16 gm] 1 spray NASL Q12 #1 inhaler 01/04/18 Allergies/Adverse Reactions: codeine Allergy (Verified 01/29/18 11:37) latex Allergy (Verified 07/19/18 20:21) Review of Systems Review of Systems: As per history of present illness. All pertinent systems were reviewed above. Constitutional, HEENT, cardiovascular, respiratory, GI, , musculoskeletal, neuro, psychiatric, endocrine, integumentary and hematologic systems were reviewed and are otherwise negative/unremarkable except for positive findings mentioned above in the HPI. Physical Exam Vital Signs: Temp Pulse Resp BP Pulse Ox 98.6 F 77 15 162/77 H 96 07/19/18 20:25 07/19/18 20:25 07/19/18 20:25 07/19/18 20:25 07/19/18 20:25 Intake & Output 07/18/18 07/19/18 07/20/18 06:59 06:59 06:59 Weight 78.8 kg Exam: Generally: Pleasant elderly -[place] female in no acute distress Vital signs-as listed Head - atraumatic, normocephalic. Pupils - equal, round and reactive to light and accommodation. Extraocular movements are intact. No scleral icterus. Oropharynx - moist mucous membranes and tongue. No pharyngeal erythema or exudate. Neck - supple. No JVD. Carotid pulses 2+ bilaterally. No carotid bruits. No palpable thyromegaly or lymphadenopathy. Cardiovascular - regular rate and rhythm. Normal S1 and S2. No murmurs, gallops or rubs. Lungs - clear to auscultation bilaterally. Abdomen - soft with left lower quadrant tenderness without rebound tenderness guarding or rigidity. Positive bowel sounds. No palpable organomegaly or masses. Extremities - no pitting edema, clubbing or cyanosis. Neuro - grossly non-focal. Skin - no rashes. Breast, pelvic and rectal - deferred Results Laboratory Results: 07/19/18 21:20 07/19/18 21:20 07/19/18 07/19/18 07/19/18 20:58 21:20 21:20 WBC 7.7 RBC 4.62 Hgb 13.0 Hct 39.1 MCV 85 MCH 28.1 MCHC 33.2 RDW 14.6 H Plt Count 216 Seg Neutrophils % 64.7 Lymphocytes % 24.5 Monocytes % 9.2 Eosinophils % 1.2 Basophils % 0.4 Absolute Neutrophils 5.0 Absolute Lymphocytes 1.9 Absolute Monocytes 0.7 Absolute Eosinophils 0.1 Absolute Basophils 0.0 Sodium 142.0 Potassium 4.0 Chloride 105 Carbon Dioxide 28 Anion Gap 9 BUN 16 Creatinine 0.99 Est GFR ( Amer) > 60 Est GFR (Non-Af Amer) 55 L Glucose 113 H Calcium 10.5 H Total Bilirubin 0.3 AST 20 ALT 21 Alkaline Phosphatase 77 Total Protein 6.9 Albumin 4.0 Lipase 50.2 Urine Color YELLOW Urine Appearance CLEAR Urine pH 7.0 Ur Specific [place] 1.013 Urine Protein NEGATIVE Urine Glucose (UA) NEGATIVE Urine Ketones NEGATIVE Urine Blood NEGATIVE Urine Nitrite NEGATIVE Ur Leukocyte Esterase MODERATE H Urine WBC (Auto) 10 Urine RBC (Auto) 1 Impressions: Abdomen/Pelvis CT 07/19/18 21:02 IMPRESSION: Acute sigmoid diverticulitis. Questionable tiny developing abscess, as above. Cholelithiasis. Severe left renal atrophy.. TECHNICAL DOCUMENTATION: Quality ID # 436: Final reports with documentation of one or more dose reduction techniques (e.g., Automated exposure control, adjustment of the mA and/or kV according to patient size, use of iterative reconstruction technique) copyright 2011 [employer]- All Rights Reserved Assessment and Plan - Diagnosis (1) Acute diverticulitis Is this a current diagnosis for this admission?: Yes Plan: Patient will be admitted to a medical monitored bed. She will be placed on IV Cipro and Flagyl. We will follow serial hemoglobin and hematocrits. Pain ma nagement will be provided with as needed Percocet and morphine sulfate. A surgery consult with obtained and appreciated by Dr. Constantino. (2) GI bleeding Is this a current diagnosis for this admission?: Yes Plan: This is likely secondary to her diverticulosis. She will need a barium enema is recommended then colonoscopy in 6 weeks. We will follow serial hemoglobin and hematocrits while she is here. Management otherwise as above (3) Hypertension Qualifiers: Hypertension type: essential hypertension Qualified Code(s): I10 - Essential (primary) hypertension Is this a current diagnosis for this admission?: Yes Plan: She will be placed on as needed IV hydralazine and will resume her antihypertens deonna. Elevated blood pressure could be related to her pain. (4) Dyslipidemia Is this a current diagnosis for this admission?: Yes Plan: This is apparently diet managed. (5) DVT prophylaxis Is this a current diagnosis for this admission?: Yes Plan: She will be placed on SCDs. Medical prophylaxis currently contraindicated given the possibility of GI bleeding. - Time Medications reviewed and adjusted accordingly: Yes Within: within 36 hours - Inpatient Certification Medical Necessity: Need for Pain Control, Need for IV Antibiotics, Risk of Complication if Not Cared For in Hospital - Plan Summary Plan Summary: The plan of care was discussed in details with the patient. I answered all questions. The patient agreed to proceed with the above-mentioned plan. The patient is presumably full code. This note was created by [employer] software and may contain typo errors that may have not been proofread.
[2018-07-20] MEDS: NORMAL SALINE 1000 ML 1,000 ML IV PRN ×2 (01:20→17:31)
[2018-07-20] MEDS ORDERED: CEFTRIAXONE 1 GM/D5W RTU 1 GM/50 ML RTUPB IV ONE (02:00)
[2018-07-20] MEDS: HYDRALAZINE HCL INJ/PF 20 MG/1 ML SDV IV PRN (02:41)
[2018-07-20] MEDS: MORPHINE SULFATE 10 MG/ML INJ IV PRN ×3 (02:42→20:16)
[2018-07-20] MEDS ORDERED: METRONIDAZOLE 500 MG/NS RTU 0 MG/0 ML RTUPB IV ONE (03:09)
[2018-07-20] MEDS: ONDANSETRON HCL INJ/PF 4 MG/2 ML SDV IV PRN ×2 (03:19→20:16)
[2018-07-20 04:02] LABS: ABSOLUTE LYMPHOCYTES (AUTO) 2.3 10^3/uL (0.5-4.7); ABSOLUTE MONOCYTES (AUTO) 0.7 10^3/uL (0.1-1.4); ABSOLUTE NEUT (AUTO) 5.8 10^3/uL (1.7-8.2); BASOPHILS % (AUTO) 0.3 % (0-2); EOSINOPHILS % (AUTO) 0.4 % (0-6); HEMATOCRIT 36.2 % (36.0-47.0); LYMPHOCYTES % (AUTO) 25.5 % (13-45); MEAN CORPUSCULAR HGB CONC 33.2 g/dL (32.0-36.0); MEAN CORPUSCULAR VOLUME 84 fl (80-97); MONOCYTES % (AUTO) 7.6 % (3-13); PLATELET COUNT 202 10^3/uL (150-450); RED BLOOD COUNT 4.29 10^6/uL (3.72-5.28); RED CELL DISTRIBUTION WIDTH 14.1 % (11.5-14.0); SEGMENTED NEUTROPHILS % (AUTO) 66.2 % (42-78); TOTAL CELLS COUNTED % (AUTO) 100 %; WHITE BLOOD COUNT 8.8 10^3/uL (4.0-10.5)
[2018-07-20 04:17] LABS: ANION GAP 10 (5-19); BLOOD UREA NITROGEN 13 mg/dL (7-20); CALCIUM 9.9 mg/dL (8.4-10.2); CARBON DIOXIDE 24 mmol/L (22-30); CHLORIDE 104 mmol/L (98-107); GLUCOSE 159 mg/dL (75-110); POTASSIUM 3.7 mmol/L (3.6-5.0); SODIUM 138.2 mmol/L (137-145)
[2018-07-20] MEDS ORDERED: ENOXAPARIN SODIUM INJ 40 MG/0.4 ML DISP.SYRIN SUBCUT SCH (10:00)
[2018-07-20 10:15] LABS: ABSOLUTE LYMPHOCYTES (AUTO) 1.4 10^3/uL (0.5-4.7); ABSOLUTE MONOCYTES (AUTO) 0.5 10^3/uL (0.1-1.4); ABSOLUTE NEUT (AUTO) 5.9 10^3/uL (1.7-8.2); BASOPHILS % (AUTO) 0.2 % (0-2); HEMATOCRIT 35.8 % (36.0-47.0); LYMPHOCYTES % (AUTO) 17.6 % (13-45); MEAN CORPUSCULAR HGB CONC 33.4 g/dL (32.0-36.0); MEAN CORPUSCULAR VOLUME 84 fl (80-97); MONOCYTES % (AUTO) 6.6 % (3-13); PLATELET COUNT 202 10^3/uL (150-450); RED BLOOD COUNT 4.27 10^6/uL (3.72-5.28); RED CELL DISTRIBUTION WIDTH 14.2 % (11.5-14.0); SEGMENTED NEUTROPHILS % (AUTO) 75.6 % (42-78); TOTAL CELLS COUNTED % (AUTO) 100 %; WHITE BLOOD COUNT 7.8 10^3/uL (4.0-10.5)
[2018-07-20] MEDS: VERAPAMIL HCL 120 MG TABLET.SA PO SCH (10:17)
[2018-07-20] MEDS: METRONIDAZOLE 500 MG/NS RTU 500 MG/100 ML RTUPB IV SCH ×2 (10:18→17:35)
--- NOTE | 2018-07-20 11:15 | PDOC PROGRESS REPORT ---
Subjective Progress Note for:: 07/20/18 Subjective:: Patient states she feels better, had some flatus. States she underwent colonoscopy in 2013 [facility] ; the was scheduled to undergo a repeat colonoscopy due to previous polypectomy. However this was not scheduled. Patient has been having abdominal pain for approximately 1 week. She is not aware of previous episodes. Reason For Visit: ACUT SIGMOID DIVERTICULITIS WITH ABSCESS Physical Exam Vital Signs: Temp Pulse Resp BP Pulse Ox 98.3 F 60 16 128/57 H 98 07/20/18 07:37 07/20/18 07:37 07/20/18 07:37 07/20/18 07:37 07/20/18 07:37 Intake & Output 07/19/18 07/20/18 07/21/18 06:59 06:59 06:59 Intake Total 1150 Balance 1150 Weight 78.8 kg General appearance: PRESENT: no acute distress GI/Abdominal exam: PRESENT: other - Abdomen is benign. Minimal left and central suprapubic tenderness. There is minimal if any guarding. Results Laboratory Results: 07/20/18 09:43 07/20/18 03:43 07/19/18 07/19/18 07/19/18 20:58 21:20 21:20 WBC 7.7 RBC 4.62 Hgb 13.0 Hct 39.1 MCV 85 MCH 28.1 MCHC 33.2 RDW 14.6 H Plt Count 216 Seg Neutrophils % 64.7 Lymphocytes % 24.5 Monocytes % 9.2 Eosinophils % 1.2 Basophils % 0.4 Absolute Neutrophils 5.0 Absolute Lymphocytes 1.9 Absolute Monocytes 0.7 Absolute Eosinophils 0.1 Absolute Basophils 0.0 Sodium 142.0 Potassium 4.0 Chloride 105 Carbon Dioxide 28 Anion Gap 9 BUN 16 Creatinine 0.99 Est GFR ( Amer) > 60 Est GFR (Non-Af Amer) 55 L Glucose 113 H Calcium 10.5 H Total Bilirubin 0.3 AST 20 ALT 21 Alkaline Phosphatase 77 Total Protein 6.9 Albumin 4.0 Lipase 50.2 Urine Color YELLOW Urine Appearance CLEAR Urine pH 7.0 Ur Specific [place] 1.013 Urine Protein NEGATIVE Urine Glucose (UA) NEGATIVE Urine Ketones NEGATIVE Urine Blood NEGATIVE Urine Nitrite NEGATIVE Ur Leukocyte Esterase MODERATE H Urine WBC (Auto) 10 Urine RBC (Auto) 1 07/20/18 07/20/18 07/20/18 03:43 03:43 09:43 WBC 8.8 7.8 RBC 4.29 4.27 Hgb 12.0 12.0 Hct 36.2 35.8 L MCV 84 84 MCH 28.0 28.0 MCHC 33.2 33.4 RDW 14.1 H 14.2 H Plt Count 202 202 Seg Neutrophils % 66.2 75.6 Lymphocytes % 25.5 17.6 Monocytes % 7.6 6.6 Eosinophils % 0.4 0.0 Basophils % 0.3 0.2 Absolute Neutrophils 5.8 5.9 Absolute Lymphocytes 2.3 1.4 Absolute Monocytes 0.7 0.5 Absolute Eosinophils 0.0 0.0 Absolute Basophils 0.0 0.0 Sodium 138.2 Potassium 3.7 Chloride 104 Carbon Dioxide 24 Anion Gap 10 BUN 13 Creatinine 0.79 Est GFR ( Amer) > 60 Est GFR (Non-Af Amer) > 60 Glucose 159 H Calcium 9.9 Total Bilirubin AST ALT Alkaline Phosphatase Total Protein Albumin Lipase Urine Color Urine Appearance Urine pH Ur Specific [place] Urine Protein Urine Glucose (UA) Urine Ketones Urine Blood Urine Nitrite Ur Leukocyte Esterase Urine WBC (Auto) Urine RBC (Auto) Impressions: Abdomen/Pelvis CT 07/19/18 21:02 IMPRESSION: Acute sigmoid diverticulitis. Questionable tiny developing abscess, as above. Cholelithiasis. Severe left renal atrophy.. TECHNICAL DOCUMENTATION: Quality ID # 436: Final reports with documentation of one or more dose reduction techniques (e.g., Automated exposure control, adjustment of the mA and/or kV according to patient size, use of iterative reconstruction technique) copyright 2011 [employer]- All Rights Reserved Assessment & Plan - Diagnosis (1) Acute diverticulitis Is this a current diagnosis for this admission?: Yes Plan: Impression and recommendations: Patient has acute, complicated diverticulitis with pericolonic abscess. She is responding appropriately to a bowel rest, and intravenous antibiotic therapy. No indication for surgical intervention. Recommendations: 1. We will start clear liquid diet. 2. Recommend continued IV antibiotics for another 24 hours, then if patient doing well clinically, convert to p.o. antibiotics and continue for approximately 1 week. 3. Recommend colonoscopic evaluation after the acute flareup subsides. 4. All the above explained to the patient. She expresses understanding and agrees to proceed.
[2018-07-20] MEDS: FLUTICASONE NASAL SPRAY 50 MCG/SPRY 120 SPRAY/16 GM NASL SCH (12:11)
[2018-07-20 16:19] LABS: ABSOLUTE LYMPHOCYTES (AUTO) 1.5 10^3/uL (0.5-4.7); ABSOLUTE MONOCYTES (AUTO) 0.7 10^3/uL (0.1-1.4); ABSOLUTE NEUT (AUTO) 5.9 10^3/uL (1.7-8.2); BASOPHILS % (AUTO) 0.3 % (0-2); EOSINOPHILS % (AUTO) 0.2 % (0-6); HEMATOCRIT 36.2 % (36.0-47.0); LYMPHOCYTES % (AUTO) 18.9 % (13-45); MEAN CORPUSCULAR HEMOGLOBIN 28.2 pg (27.0-33.4); MEAN CORPUSCULAR HGB CONC 33.3 g/dL (32.0-36.0); MEAN CORPUSCULAR VOLUME 85 fl (80-97); MONOCYTES % (AUTO) 8.2 % (3-13); PLATELET COUNT 199 10^3/uL (150-450); RED BLOOD COUNT 4.27 10^6/uL (3.72-5.28); RED CELL DISTRIBUTION WIDTH 14.4 % (11.5-14.0); SEGMENTED NEUTROPHILS % (AUTO) 72.4 % (42-78); TOTAL CELLS COUNTED % (AUTO) 100 %; WHITE BLOOD COUNT 8.2 10^3/uL (4.0-10.5)
[2018-07-20] MEDS: CIPROFLOXACIN 400 MG/D5W RTU 400 MG/200 ML RTUPB IV SCH (17:32)
[2018-07-21] MEDS: METRONIDAZOLE 500 MG/NS RTU 500 MG/100 ML RTUPB IV SCH ×3 (01:35→17:25)
[2018-07-21] MEDS: FLUTICASONE NASAL SPRAY 50 MCG/SPRY 120 SPRAY/16 GM NASL SCH ×3 (04:24→21:37)
[2018-07-21] MEDS: NORMAL SALINE 1000 ML 1,000 ML IV PRN ×2 (05:31→20:18)
[2018-07-21] MEDS: CIPROFLOXACIN 400 MG/D5W RTU 400 MG/200 ML RTUPB IV SCH ×2 (05:31→17:25)
[2018-07-21 07:28] LABS: ABSOLUTE EOSINOPHILS # (AUTO) 0.1 10^3/uL (0.0-0.6); ABSOLUTE LYMPHOCYTES (AUTO) 1.6 10^3/uL (0.5-4.7); ABSOLUTE MONOCYTES (AUTO) 0.4 10^3/uL (0.1-1.4); ABSOLUTE NEUT (AUTO) 3.7 10^3/uL (1.7-8.2); BASOPHILS % (AUTO) 0.6 % (0-2); EOSINOPHILS % (AUTO) 1.3 % (0-6); HEMATOCRIT 34.1 % (36.0-47.0); HEMOGLOBIN 11.3 g/dL (12.0-15.5); LYMPHOCYTES % (AUTO) 27.8 % (13-45); MEAN CORPUSCULAR HEMOGLOBIN 27.7 pg (27.0-33.4); MEAN CORPUSCULAR HGB CONC 33.1 g/dL (32.0-36.0); MEAN CORPUSCULAR VOLUME 84 fl (80-97); MONOCYTES % (AUTO) 7.1 % (3-13); PLATELET COUNT 191 10^3/uL (150-450); RED BLOOD COUNT 4.07 10^6/uL (3.72-5.28); RED CELL DISTRIBUTION WIDTH 14.5 % (11.5-14.0); SEGMENTED NEUTROPHILS % (AUTO) 63.2 % (42-78); TOTAL CELLS COUNTED % (AUTO) 100 %; WHITE BLOOD COUNT 5.9 10^3/uL (4.0-10.5)
[2018-07-21 07:59] LABS: ANION GAP 7 (5-19); BLOOD UREA NITROGEN 11 mg/dL (7-20); CALCIUM 9.7 mg/dL (8.4-10.2); CARBON DIOXIDE 25 mmol/L (22-30); CHLORIDE 107 mmol/L (98-107); GLUCOSE 137 mg/dL (75-110); SODIUM 139.3 mmol/L (137-145)
[2018-07-21] MEDS ORDERED: ACETAMINOPHEN 650 MG SUPP.RECT PR PRN (08:58)
--- NOTE | 2018-07-21 09:13 | PDOC PROGRESS REPORT ---
Subjective Progress Note for:: 07/21/18 Subjective:: Abdominal pain has improved but had nausea and vomiting yesterday. Currently not nauseated. No bowel movement. Reason For Visit: ACUTE SIGMOID DIVERTICULITIS WITH ABSCESS Physical Exam Vital Signs: Temp Pulse Resp BP Pulse Ox 98.3 F 50 L 15 157/66 H 94 07/21/18 07:17 07/21/18 07:17 07/21/18 07:17 07/21/18 07:17 07/21/18 07:17 Intake & Output 07/20/18 07/21/18 07/22/18 06:59 06:59 06:59 Intake Total 1150 2500 Output Total 500 Balance 1150 2000 Weight 78.8 kg General appearance: PRESENT: no acute distress, cooperative Respiratory exam: PRESENT: clear to auscultation rainer Cardiovascular exam: PRESENT: RRR GI/Abdominal exam: PRESENT: other - Soft, nondistended, mild left lower quadrant abdominal tenderness without peritoneal signs. Extremities exam: PRESENT: other - No swelling and no tenderness Results Laboratory Results: 07/21/18 07:03 07/21/18 07:03 07/20/18 07/20/18 07/21/18 09:43 15:11 07:03 WBC 7.8 8.2 5.9 RBC 4.27 4.27 4.07 Hgb 12.0 12.0 11.3 L Hct 35.8 L 36.2 34.1 L MCV 84 85 84 MCH 28.0 28.2 27.7 MCHC 33.4 33.3 33.1 RDW 14.2 H 14.4 H 14.5 H Plt Count 202 199 191 Seg Neutrophils % 75.6 72.4 63.2 Lymphocytes % 17.6 18.9 27.8 Monocytes % 6.6 8.2 7.1 Eosinophils % 0.0 0.2 1.3 Basophils % 0.2 0.3 0.6 Absolute Neutrophils 5.9 5.9 3.7 Absolute Lymphocytes 1.4 1.5 1.6 Absolute Monocytes 0.5 0.7 0.4 Absolute Eosinophils 0.0 0.0 0.1 Absolute Basophils 0.0 0.0 0.0 Sodium Potassium Chloride Carbon Dioxide Anion Gap BUN Creatinine Est GFR ( Amer) Est GFR (Non-Af Amer) Glucose Calcium 07/21/18 07:03 WBC RBC Hgb Hct MCV MCH MCHC RDW Plt Count Seg Neutrophils % Lymphocytes % Monocytes % Eosinophils % Basophils % Absolute Neutrophils Absolute Lymphocytes Absolute Monocytes Absolute Eosinophils Absolute Basophils Sodium 139.3 Potassium 4.0 Chloride 107 Carbon Dioxide 25 Anion Gap 7 BUN 11 Creatinine 0.88 Est GFR ( Amer) > 60 Est GFR (Non-Af Amer) > 60 Glucose 137 H Calcium 9.7 Impressions: Abdomen/Pelvis CT 07/19/18 21:02 IMPRESSION: Acute sigmoid diverticulitis. Questionable tiny developing abscess, as above. Cholelithiasis. Severe left renal atrophy.. TECHNICAL DOCUMENTATION: Quality ID # 436: Final reports with documentation of one or more dose reduction techniques (e.g., Automated exposure control, adjustment of the mA and/or kV according to patient size, use of iterative reconstruction technique) copyright 2011 [employer]- All Rights Reserved Assessment & Plan - Diagnosis (1) Acute diverticulitis Is this a current diagnosis for this admission?: Yes Plan: Improving with antibiotics. With her nausea and vomiting yesterday will not advance her diet. Patient does feel better today. Continue IV antibiotics.
[2018-07-21] MEDS: VERAPAMIL HCL 120 MG TABLET.SA PO SCH (10:26)
[2018-07-21] MEDS: HYDRALAZINE HCL INJ/PF 20 MG/1 ML SDV IV PRN ×2 (11:29→20:25)
--- NOTE | 2018-07-21 13:09 | PDOC PROGRESS REPORT ---
Subjective Progress Note for:: 07/20/18 Subjective:: The patient is resting comfortably in bed. There are multiple visitors. She has been started on a clear liquid diet. She does not appear to be in any discomfort. Reason For Visit: ACUTE SIGMOID DIVERTICULITIS WITH ABSCESS Physical Exam Vital Signs: Temp Pulse Resp BP Pulse Ox 98.3 F 64 18 134/63 H 98 07/20/18 11:27 07/20/18 11:27 07/20/18 11:27 07/20/18 11:27 07/20/18 11:27 Intake & Output 07/19/18 07/20/18 07/21/18 06:59 06:59 06:59 Intake Total 1150 Balance 1150 Weight 78.8 kg General appearance: PRESENT: no acute distress, cooperative, well-developed Head exam: PRESENT: atraumatic, normocephalic Eye exam: PRESENT: conjunctiva pink. ABSENT: scleral icterus Mouth exam: PRESENT: moist, tongue midline Respiratory exam: PRESENT: clear to auscultation rainer, symmetrical, unlabored. ABSENT: accessory muscle use, rales, rhonchi, wheezes Cardiovascular exam: PRESENT: RRR, +S1, +S2, systolic murmur - 3/6 GI/Abdominal exam: PRESENT: hypoactive bowel sounds, soft, tenderness. ABSENT: distended Rectal exam: PRESENT: deferred Gentrourinary exam: ABSENT: indwelling catheter Extremities exam: ABSENT: pedal edema Neurological exam: PRESENT: alert, awake, oriented to person, oriented to place, oriented to time, oriented to situation, CN II-XII grossly intact. ABSENT: altered Psychiatric exam: PRESENT: appropriate affect. ABSENT: agitated, anxious Focused psych exam: ABSENT: delusional, restlessness Results Laboratory Results: 07/20/18 09:43 07/20/18 03:43 07/19/18 07/19/18 07/19/18 20:58 21:20 21:20 WBC 7.7 RBC 4.62 Hgb 13.0 Hct 39.1 MCV 85 MCH 28.1 MCHC 33.2 RDW 14.6 H Plt Count 216 Seg Neutrophils % 64.7 Lymphocytes % 24.5 Monocytes % 9.2 Eosinophils % 1.2 Basophils % 0.4 Absolute Neutrophils 5.0 Absolute Lymphocytes 1.9 Absolute Monocytes 0.7 Absolute Eosinophils 0.1 Absolute Basophils 0.0 Sodium 142.0 Potassium 4.0 Chloride 105 Carbon Dioxide 28 Anion Gap 9 BUN 16 Creatinine 0.99 Est GFR ( Amer) > 60 Est GFR (Non-Af Amer) 55 L Glucose 113 H Calcium 10.5 H Total Bilirubin 0.3 AST 20 ALT 21 Alkaline Phosphatase 77 Total Protein 6.9 Albumin 4.0 Lipase 50.2 Urine Color YELLOW Urine Appearance CLEAR Urine pH 7.0 Ur Specific [place] 1.013 Urine Protein NEGATIVE Urine Glucose (UA) NEGATIVE Urine Ketones NEGATIVE Urine Blood NEGATIVE Urine Nitrite NEGATIVE Ur Leukocyte Esterase MODERATE H Urine WBC (Auto) 10 Urine RBC (Auto) 1 07/20/18 07/20/18 07/20/18 03:43 03:43 09:43 WBC 8.8 7.8 RBC 4.29 4.27 Hgb 12.0 12.0 Hct 36.2 35.8 L MCV 84 84 MCH 28.0 28.0 MCHC 33.2 33.4 RDW 14.1 H 14.2 H Plt Count 202 202 Seg Neutrophils % 66.2 75.6 Lymphocytes % 25.5 17.6 Monocytes % 7.6 6.6 Eosinophils % 0.4 0.0 Basophils % 0.3 0.2 Absolute Neutrophils 5.8 5.9 Absolute Lymphocytes 2.3 1.4 Absolute Monocytes 0.7 0.5 Absolute Eosinophils 0.0 0.0 Absolute Basophils 0.0 0.0 Sodium 138.2 Potassium 3.7 Chloride 104 Carbon Dioxide 24 Anion Gap 10 BUN 13 Creatinine 0.79 Est GFR ( Amer) > 60 Est GFR (Non-Af Amer) > 60 Glucose 159 H Calcium 9.9 Total Bilirubin AST ALT Alkaline Phosphatase Total Protein Albumin Lipase Urine Color Urine Appearance Urine pH Ur Specific [place] Urine Protein Urine Glucose (UA) Urine Ketones Urine Blood Urine Nitrite Ur Leukocyte Esterase Urine WBC (Auto) Urine RBC (Auto) Impressions: Abdomen/Pelvis CT 07/19/18 21:02 IMPRESSION: Acute sigmoid diverticulitis. Questionable tiny developing abscess, as above. Cholelithiasis. Severe left renal atrophy.. TECHNICAL DOCUMENTATION: Quality ID # 436: Final reports with documentation of one or more dose reduction techniques (e.g., Automated exposure control, adjustment of the mA and/or kV according to patient size, use of iterative reconstruction technique) copyright 2011 [employer]- All Rights Reserved Assessment and Plan - Diagnosis (1) Acute diverticulitis Is this a current diagnosis for this admission?: Yes Plan: CT scan reveals inflammation with possible diverticular abscess. There was no free air. It did not appear that there was a perforation. I believe the abnormal focus was approximately 1 cm with surrounding inflamed tissue. The patient is on IV Flagyl and Rocephin she actually reports having minimal discomfort with decreased left lower quadrant tenderness. She states that she did have some Jell-O and water and feels that she is tolerating her oral intake. Continue antibiotic therapy. (2) Hypertension Qualifiers: Hypertension type: essential hypertension Qualified Code(s): I10 - Essential (primary) hypertension Is this a current diagnosis for this admission?: Yes Plan: Blood pressures are good today. They will likely fluctuate with pain. Continue verapamil at this time. (3) Anemia Qualifiers: Anemia type: iron deficiency Is this a current diagnosis for this admission?: Yes Plan: Patient reports a history of iron deficiency anemia. On admissio her hemoglobin was 13. It is 12 this morning but she has been receiving IV fluids. Continue to monitor. (4) Dyslipidemia Is this a current diagnosis for this admission?: No Plan: She reports a history of hyperlipidemia. She is currently not on statin therapy and it is likely controlled with diet and exercise. Defer further evaluations to primary care provider. - Time Time Spent with patient: Less than 15 minutes Medications reviewed and adjusted accordingly: Yes Anticipated discharge: Home - Plan Summary Plan Summary: new admit. divertic itis vs absc
[2018-07-21] MEDS: ACETAMINOPHEN 325 MG TABLET PO PRN (14:40)
--- NOTE | 2018-07-21 14:59 | PDOC PROGRESS REPORT ---
Subjective Progress Note for:: 07/21/18 Subjective:: PENELOPE FOWLER is a 72 year old female with a history of hypertension and dyslipidemia who was admitted 07/19/2018 for acute sigmoid diverticulitis with abscess. Patient was seen on afternoon rounds; she was found resting in bed comfortably on room air. She reports continued mild abdominal discomfort radiating to her left flank without nausea or vomiting. She is tolerating a clear liquid diet today. She denies fever, chills, chest pain, and dyspnea. She has no new questions or concerns. No concerns per nursing. Reason For Visit: ACUTE SIGMOID DIVERTICULITIS WITH ABSCESS Physical Exam Vital Signs: Temp Pulse Resp BP Pulse Ox 98.1 F 57 L 15 174/64 H 99 07/21/18 11:21 07/21/18 11:21 07/21/18 11:21 07/21/18 11:21 07/21/18 11:21 Intake & Output 07/20/18 07/21/18 07/22/18 06:59 06:59 06:59 Intake Total 1150 2500 400 Output Total 500 Balance 1150 2000 400 Weight 78.8 kg General appearance: PRESENT: no acute distress, cooperative, well-developed, well-nourished - overweight Head exam: PRESENT: atraumatic, normocephalic Eye exam: PRESENT: conjunctiva pink, EOMI, PERRLA. ABSENT: scleral icterus Mouth exam: PRESENT: moist, tongue midline Respiratory exam: PRESENT: clear to auscultation rainer, symmetrical, unlabored. ABSENT: rales, rhonchi, wheezes Cardiovascular exam: PRESENT: RRR. ABSENT: diastolic murmur, rubs, systolic murmur Pulses: PRESENT: normal dorsalis pedis pul Vascular exam: PRESENT: normal capillary refill GI/Abdominal exam: PRESENT: hypoactive bowel sounds, soft, tenderness. ABSENT: distended, guarding, mass, organolmegaly, rebound Rectal exam: PRESENT: deferred Extremities exam: PRESENT: full ROM. ABSENT: calf tenderness, clubbing, pedal edema Neurological exam: PRESENT: alert, awake, oriented to person, oriented to place, oriented to time, oriented to situation, CN II-XII grossly intact. ABSENT: motor sensory deficit Psychiatric exam: PRESENT: appropriate affect, normal mood. ABSENT: homicidal ideation, suicidal ideation Skin exam: PRESENT: dry, intact, warm. ABSENT: cyanosis, rash Results Laboratory Results: 07/21/18 07:03 07/21/18 07:03 07/20/18 07/21/18 07/21/18 15:11 07:03 07:03 WBC 8.2 5.9 RBC 4.27 4.07 Hgb 12.0 11.3 L Hct 36.2 34.1 L MCV 85 84 MCH 28.2 27.7 MCHC 33.3 33.1 RDW 14.4 H 14.5 H Plt Count 199 191 Seg Neutrophils % 72.4 63.2 Lymphocytes % 18.9 27.8 Monocytes % 8.2 7.1 Eosinophils % 0.2 1.3 Basophils % 0.3 0.6 Absolute Neutrophils 5.9 3.7 Absolute Lymphocytes 1.5 1.6 Absolute Monocytes 0.7 0.4 Absolute Eosinophils 0.0 0.1 Absolute Basophils 0.0 0.0 Sodium 139.3 Potassium 4.0 Chloride 107 Carbon Dioxide 25 Anion Gap 7 BUN 11 Creatinine 0.88 Est GFR ( Amer) > 60 Est GFR (Non-Af Amer) > 60 Glucose 137 H Calcium 9.7 Impressions: Abdomen/Pelvis CT 07/19/18 21:02 IMPRESSION: Acute sigmoid diverticulitis. Questionable tiny developing abscess, as above. Cholelithiasis. Severe left renal atrophy.. TECHNICAL DOCUMENTATION: Quality ID # 436: Final reports with documentation of one or more dose reduction techniques (e.g., Automated exposure control, adjustment of the mA and/or kV according to patient size, use of iterative reconstruction technique) copyright 2011 [employer] All Rights Reserved Assessment and Plan - Diagnosis (1) Acute diverticulitis Is this a current diagnosis for this admission?: Yes Plan: CT scan reveals inflammation with possible diverticular abscess. There was no free air. It did not appear that there was a perforation. The patient has been admitted to the medical floor and empirically placed on IV Flagyl and Rocephin. Surgery has been consulted; diet advanced to clears per their recommendations. Antiemetics and analgesics as needed. (2) Anemia Qualifiers: Anemia type: iron deficiency Is this a current diagnosis for this admission?: Yes Plan: Patient reports a history of iron deficiency anemia. On admission, hemoglobin 13.0, has trended down to 11.3 with IV fluids. No source of active bleeding. We will continue to monitor and transfuse for active bleeding or hemoglobin <8. (3) Dyslipidemia Is this a current diagnosis for this admission?: No Plan: She reports a history of hyperlipidemia. Currently on clear liquid diet. Continue home dose Crestor. (4) Hypertension Qualifiers: Hypertension type: essential hypertension Qualified Code(s): I10 - Essential (primary) hypertension Is this a current diagnosis for this admission?: Yes Plan: BP slightly elevated today; possibly in relation to acute illness/pain. Continue home dose verapamil at this time. As needed hydralazine for blood pressure control. - Time Time Spent with patient: 15-24 minutes Medications reviewed and adjusted accordingly: Yes Anticipated discharge: Home Within: within 48 hours - Inpatient Certification Based on my medical assessment, after consideration of the patient's comorbidities, presenting symptoms, or acuity I expect that the services needed warrant INPATIENT care.: Yes I certify that my determination is in accordance with my understanding of Medicare's requirements for reasonable and necessary INPATIENT services [42 CFR 412.3e].: Yes Medical Necessity: Need Close Monitoring Due to Risk of Patient Decompensation, Need For IV Fluids, Need for IV Antibiotics, Risk of Diagnosis Which Will Require Inpatient Eval/Care/Monitoring
[2018-07-21] MEDS: ONDANSETRON HCL INJ/PF 4 MG/2 ML SDV IV PRN (18:57)
[2018-07-21] MEDS: MORPHINE SULFATE 10 MG/ML INJ IV PRN (20:24)
[2018-07-21] MEDS: ATORVASTATIN CALCIUM 20 MG TABLET PO SCH (21:38)
[2018-07-22] MEDS: METRONIDAZOLE 500 MG/NS RTU 500 MG/100 ML RTUPB IV SCH ×2 (01:15→09:33)
[2018-07-22] MEDS: CIPROFLOXACIN 400 MG/D5W RTU 400 MG/200 ML RTUPB IV SCH (06:25)
[2018-07-22 06:27] LABS: ABSOLUTE LYMPHOCYTES (AUTO) 1.3 10^3/uL (0.5-4.7); ABSOLUTE MONOCYTES (AUTO) 0.5 10^3/uL (0.1-1.4); ABSOLUTE NEUT (AUTO) 3.9 10^3/uL (1.7-8.2); BASOPHILS % (AUTO) 0.4 % (0-2); EOSINOPHILS % (AUTO) 0.8 % (0-6); HEMOGLOBIN 12.2 g/dL (12.0-15.5); LYMPHOCYTES % (AUTO) 22.4 % (13-45); MEAN CORPUSCULAR HEMOGLOBIN 27.8 pg (27.0-33.4); MEAN CORPUSCULAR HGB CONC 32.9 g/dL (32.0-36.0); MEAN CORPUSCULAR VOLUME 84 fl (80-97); MONOCYTES % (AUTO) 8.8 % (3-13); PLATELET COUNT 221 10^3/uL (150-450); RED BLOOD COUNT 4.39 10^6/uL (3.72-5.28); RED CELL DISTRIBUTION WIDTH 14.2 % (11.5-14.0); SEGMENTED NEUTROPHILS % (AUTO) 67.6 % (42-78); TOTAL CELLS COUNTED % (AUTO) 100 %; WHITE BLOOD COUNT 5.8 10^3/uL (4.0-10.5)
[2018-07-22 06:52] LABS: ANION GAP 8 (5-19); BLOOD UREA NITROGEN 11 mg/dL (7-20); CALCIUM 9.9 mg/dL (8.4-10.2); CARBON DIOXIDE 25 mmol/L (22-30); CHLORIDE 107 mmol/L (98-107); GLUCOSE 101 mg/dL (75-110); POTASSIUM 3.7 mmol/L (3.6-5.0); SODIUM 139.5 mmol/L (137-145)
[2018-07-22] MEDS: HYDRALAZINE HCL INJ/PF 20 MG/1 ML SDV IV PRN (07:43)
[2018-07-22] MEDS: ACETAMINOPHEN 325 MG TABLET PO PRN ×2 (08:36→21:54)
[2018-07-22] MEDS: ONDANSETRON HCL INJ/PF 4 MG/2 ML SDV IV PRN (08:37)
[2018-07-22] MEDS: NORMAL SALINE 1000 ML 1,000 ML IV PRN (08:40)
[2018-07-22] MEDS: LISINOPRIL 10 MG TABLET PO SCH (09:33)
[2018-07-22] MEDS: VERAPAMIL HCL 120 MG TABLET.SA PO SCH (09:33)
[2018-07-22] MEDS: FLUTICASONE NASAL SPRAY 50 MCG/SPRY 120 SPRAY/16 GM NASL SCH ×2 (09:33→21:38)
--- NOTE | 2018-07-22 16:06 | PDOC PROGRESS REPORT ---
Subjective Progress Note for:: 07/22/18 Subjective:: PENELOPE FOWLER is a 72 year old female with a history of hypertension and dyslipidemia who was admitted 07/19/2018 for acute sigmoid diverticulitis with abscess. Patient was seen on afternoon rounds; she was found resting in bed comfortably on room air. She reports continued mild abdominal discomfort radiating to her left flank without nausea or vomiting. Overall, she feels better than yesterday. Diet has been advanced to regular per surgery. She denies fever, chills, chest pain, and dyspnea. She has no new questions or concerns. No concerns per nursing. Reason For Visit: ACUTE SIGMOID DIVERTICULITIS WITH ABSCESS Physical Exam Vital Signs: Temp Pulse Resp BP Pulse Ox 98.2 F 67 18 141/69 H 96 07/22/18 14:32 07/22/18 14:32 07/22/18 14:32 07/22/18 14:32 07/22/18 14:32 Intake & Output 07/21/18 07/22/18 07/23/18 06:59 06:59 06:59 Intake Total 2700 3380 1250 Output Total 500 975 200 Balance 2200 2405 1050 Weight 78.7 kg 78.7 kg General appearance: PRESENT: no acute distress, well-developed, well-nourished - overweight Head exam: PRESENT: atraumatic, normocephalic Eye exam: PRESENT: conjunctiva pink, EOMI, PERRLA. ABSENT: scleral icterus Mouth exam: PRESENT: moist, tongue midline Neck exam: ABSENT: carotid bruit, JVD, lymphadenopathy, thyromegaly Respiratory exam: PRESENT: clear to auscultation rainer, symmetrical, unlabored. ABSENT: rales, rhonchi, wheezes Cardiovascular exam: PRESENT: RRR. ABSENT: diastolic murmur, rubs, systolic murmur Pulses: PRESENT: normal dorsalis pedis pul Vascular exam: PRESENT: normal capillary refill GI/Abdominal exam: PRESENT: normal bowel sounds, soft, tenderness. ABSENT: distended, guarding, mass, organolmegaly, rebound Rectal exam: PRESENT: deferred Extremities exam: PRESENT: full ROM. ABSENT: calf tenderness, clubbing, pedal edema Neurological exam: PRESENT: alert, awake, oriented to person, oriented to place, oriented to time, oriented to situation, CN II-XII grossly intact. ABSENT: motor sensory deficit Psychiatric exam: PRESENT: appropriate affect, normal mood. ABSENT: homicidal ideation, suicidal ideation Skin exam: PRESENT: dry, intact, warm. ABSENT: cyanosis, rash Results Laboratory Results: 07/22/18 05:52 07/22/18 05:52 07/22/18 07/22/18 05:52 05:52 WBC 5.8 RBC 4.39 Hgb 12.2 Hct 37.0 MCV 84 MCH 27.8 MCHC 32.9 RDW 14.2 H Plt Count 221 Seg Neutrophils % 67.6 Lymphocytes % 22.4 Monocytes % 8.8 Eosinophils % 0.8 Basophils % 0.4 Absolute Neutrophils 3.9 Absolute Lymphocytes 1.3 Absolute Monocytes 0.5 Absolute Eosinophils 0.0 Absolute Basophils 0.0 Sodium 139.5 Potassium 3.7 Chloride 107 Carbon Dioxide 25 Anion Gap 8 BUN 11 Creatinine 0.94 Est GFR ( Amer) > 60 Est GFR (Non-Af Amer) 58 L Glucose 101 Calcium 9.9 Impressions: Abdomen/Pelvis CT 07/19/18 21:02 IMPRESSION: Acute sigmoid diverticulitis. Questionable tiny developing abscess, as above. Cholelithiasis. Severe left renal atrophy.. TECHNICAL DOCUMENTATION: Quality ID # 436: Final reports with documentation of one or more dose reduction techniques (e.g., Automated exposure control, adjustment of the mA and/or kV according to patient size, use of iterative reconstruction technique) copyright 2011 [employer]- All Rights Reserved Assessment and Plan - Diagnosis (1) Acute diverticulitis Is this a current diagnosis for this admission?: Yes Plan: CT scan reveals inflammation with possible diverticular abscess. There was no free air. It did not appear that there was a perforation. Blood cultures negative at 48 hours; patient is afebrile with a normal WBC. The patient has been admitted to the medical floor and was empirically placed on IV Flagyl and Cipro. Will transition to oral antibiotics today; day #2. Surgery has been consulted; diet advanced to a regular diet today. Antiemetics and analgesics as needed. (2) Anemia Qualifiers: Anemia type: iron deficiency Is this a current diagnosis for this admission?: Yes Plan: Patient reports a history of iron deficiency anemia. Hgb 13-> 12-> 11.3-> 12.2 No source of active bleeding. We will continue to monitor and transfuse for active bleeding or hemoglobin <8. (3) Dyslipidemia Is this a current diagnosis for this admission?: No Plan: She reports a history of hyperlipidemia. Continue home dose Crestor. (4) Hypertension Qualifiers: Hypertension type: essential hypertension Qualified Code(s): I10 - Essential (primary) hypertension Is this a current diagnosis for this admission?: Yes Plan: BP remains elevated; 175/70 this morning Continue home dose verapamil, start lisinopril. Low Sodium diet. As needed hydralazine for blood pressure control. - Time Time Spent with patient: 15-24 minutes Medications reviewed and adjusted accordingly: Yes Anticipated discharge: Home Within: within 24 hours - Pending Surgical clearance.
--- NOTE | 2018-07-22 17:06 | PDOC PROGRESS REPORT ---
Subjective Progress Note for:: 07/22/18 Subjective:: This is a 72-year-old female admitted with diverticulitis. Patient reports that her abdominal pain is improving. She reports headache and nausea today. She had one episode of vomiting last night. The patient had morphine last night, but none today. The patient cannot relate her nausea and headache to any specific occurrence. At present, the patient denies chest pain, shortness of breath, melena, hematochezia, dizziness, blurry vision, fatigue. She does rep ort generalized malaise. Reason For Visit: ACUTE SIGMOID DIVERTICULITIS WITH ABSCESS Physical Exam Vital Signs: Temp Pulse Resp BP Pulse Ox 98.2 F 67 18 141/69 H 96 07/22/18 14:32 07/22/18 14:32 07/22/18 14:32 07/22/18 14:32 07/22/18 14:32 Intake & Output 07/21/18 07/22/18 07/23/18 06:59 06:59 06:59 Intake Total 2700 3380 1250 Output Total 500 975 200 Balance 2200 2405 1050 Weight 78.7 kg 78.7 kg General appearance: PRESENT: no acute distress, cooperative Head exam: PRESENT: atraumatic, normocephalic Eye exam: PRESENT: EOMI, PERRLA. ABSENT: scleral icterus Mouth exam: PRESENT: moist, neck supple Neck exam: ABSENT: meningismus, tenderness, thyromegaly, tracheal deviation Respiratory exam: PRESENT: unlabored. ABSENT: chest wall tenderness, tachypnea, wheezes Cardiovascular exam: PRESENT: RRR Pulses: PRESENT: normal radial pulses GI/Abdominal exam: PRESENT: soft, tenderness - mild, LLQ. ABSENT: distended, guarding Rectal exam: PRESENT: deferred Musculoskeletal exam: ABSENT: deformity Neurological exam: PRESENT: alert, awake, oriented to person, oriented to place, oriented to time, oriented to situation Psychiatric exam: ABSENT: agitated, anxious, depressed Focused psych exam: ABSENT: delusional Skin exam: ABSENT: cyanosis Results Laboratory Results: 07/22/18 05:52 07/22/18 05:52 07/22/18 07/22/18 05:52 05:52 WBC 5.8 RBC 4.39 Hgb 12.2 Hct 37.0 MCV 84 MCH 27.8 MCHC 32.9 RDW 14.2 H Plt Count 221 Seg Neutrophils % 67.6 Lymphocytes % 22.4 Monocytes % 8.8 Eosinophils % 0.8 Basophils % 0.4 Absolute Neutrophils 3.9 Absolute Lymphocytes 1.3 Absolute Monocytes 0.5 Absolute Eosinophils 0.0 Absolute Basophils 0.0 Sodium 139.5 Potassium 3.7 Chloride 107 Carbon Dioxide 25 Anion Gap 8 BUN 11 Creatinine 0.94 Est GFR ( Amer) > 60 Est GFR (Non-Af Amer) 58 L Glucose 101 Calcium 9.9 Impressions: Abdomen/Pelvis CT 07/19/18 21:02 IMPRESSION: Acute sigmoid diverticulitis. Questionable tiny developing abscess, as above. Cholelithiasis. Severe left renal atrophy.. TECHNICAL DOCUMENTATION: Quality ID # 436: Final reports with documentation of one or more dose reduction techniques (e.g., Automated exposure control, adjustment of the mA and/or kV according to patient size, use of iterative reconstruction technique) copyright 2011 [employer]- All Rights Reserved Assessment & Plan - Diagnosis (1) Acute diverticulitis Is this a current diagnosis for this admission?: Yes - Plan Summary Plan Summary: This is a 72-year-old female with diverticulitis. Her pain is improving. I have recommended continuation of her IV antibiotics. The patient reports headache and nausea. This may be related to her pain medication. I will discontinue her narcotics in hopes of alleviating her headache and nausea. Continue with Tylenol and NSAIDs. Continue with Zofran and supportive care. It does not appear that surgical intervention will be necessary. I will advance her diet today. She should eat slowly.
[2018-07-22] MEDS: CIPROFLOXACIN HCL 750 MG TABLET PO SCH (21:38)
[2018-07-22] MEDS: METRONIDAZOLE 500 MG TABLET PO SCH (21:38)
[2018-07-22] MEDS: ATORVASTATIN CALCIUM 20 MG TABLET PO SCH (21:39)
[2018-07-23] MEDS: METRONIDAZOLE 500 MG TABLET PO SCH ×2 (05:34→15:46)
[2018-07-23] MEDS ORDERED: BISACODYL 10 MG SUPP.RECT PR ONE (09:42)
--- NOTE | 2018-07-23 09:45 | PDOC PROGRESS REPORT ---
Subjective Progress Note for:: 07/23/18 Subjective:: Feels much better. Tolerating diet well. Has not had a bowel movement but no nausea or vomiting today. Reason For Visit: ACUTE SIGMOID DIVERTICULITIS WITH ABSCESS Physical Exam Vital Signs: Temp Pulse Resp BP Pulse Ox 97.7 F 75 18 141/77 H 97 07/23/18 07:57 07/23/18 07:57 07/23/18 07:57 07/23/18 07:57 07/23/18 07:57 Intake & Output 07/22/18 07/23/18 07/24/18 06:59 06:59 06:59 Intake Total 3380 1250 Output Total 975 200 Balance 2405 1050 Weight 78.7 kg 76.7 kg General appearance: PRESENT: no acute distress, cooperative Respiratory exam: PRESENT: clear to auscultation rainer Cardiovascular exam: PRESENT: RRR GI/Abdominal exam: PRESENT: other - Soft, nondistended, mild left lower quadrant tenderness markedly improved. Results Laboratory Results: 07/22/18 05:52 07/22/18 05:52 Impressions: Abdomen/Pelvis CT 07/19/18 21:02 IMPRESSION: Acute sigmoid diverticulitis. Questionable tiny developing abscess, as above. Cholelithiasis. Severe left renal atrophy.. TECHNICAL DOCUMENTATION: Quality ID # 436: Final reports with documentation of one or more dose reduction techniques (e.g., Automated exposure control, adjustment of the mA and/or kV according to patient size, use of iterative reconstruction technique) copyright 2011 [employer]- All Rights Reserved Assessment & Plan - Diagnosis (1) Acute diverticulitis Is this a current diagnosis for this admission?: Yes Plan: Responding well with antibiotics. Patient is concerned that she has not had a bowel movement for several days now. Will give her a Dulcolax suppository and if she has a bowel movement we will plan to discharge patient home today. We will plan continuation of oral antibiotics for another week with follow-up at [facility] next week. We will plan colonoscopy in the next several weeks.
[2018-07-23] MEDS: VERAPAMIL HCL 120 MG TABLET.SA PO SCH (10:27)
[2018-07-23] MEDS: FLUTICASONE NASAL SPRAY 50 MCG/SPRY 120 SPRAY/16 GM NASL SCH (10:28)
[2018-07-23] MEDS: CIPROFLOXACIN HCL 750 MG TABLET PO SCH (10:28)
[2018-07-23] MEDS: LISINOPRIL 10 MG TABLET PO SCH (10:28)
--- NOTE | 2018-07-23 16:03 | RADIOLOGY REPORT (SQ) ---
EXAM DESCRIPTION: CT ABD/PELVIS ORAL ONLY COMPLETED DATE/TIME: 07/23/2018 3:26 pm REASON FOR STUDY: STATUS OF ABSCESS COMPARISON: CT abdomen pelvis 07/19/2018 TECHNIQUE: CT scan of the abdomen and pelvis performed without intravenous contrast. Patient drank oral contrast. Images reviewed with lung, soft tissue, and bone windows. Reconstructed coronal and sagittal MPR imag es reviewed. All images stored on PACS. All CT scanners at this facility use dose modulation, iterative reconstruction, and/or weight based d osing when appropriate to reduce radiation dose to as low as reasonably achievable (ALARA). [facility]: Dose Right [facility]: CareDose [facility]: Dose Right [facility]: Teradose 4D [facility]: Smart [employer] RADIATION DOSE: CT Rad equipment meets quality standard of care and radiation dose reduction techniq ues were employed. CTDIvol: 7.4 mGy. DLP: 364 mGy-cm.mGy. LIMITATIONS: None. FINDINGS: Oral contrast is present throughout the gastrointestinal tract. There are scattered desce nding and sigmoid colon diverticuli. The inflamed sigmoid colon diverticulum seen on 07/19/2018 has i mproved, there is a decrease in pericolic inflammation. No discrete abscess. There is no free intraperitoneal air or fluid or CT signs of bowel obstruction. LOWER CHEST: No significant findings. No nodules or infiltrates. NON-CONTRASTED LIVER, SPLEEN, ADRENALS: Evaluation limited by lack of IV contrast. No identified sign ificant masses. PANCREAS: No masses. No peripancreatic inflammatory changes. GALLBLADDER: Stones in the gallbladder without CT signs of acute cholecystitis RIGHT KIDNEY AND URETER: No suspicious masses. Assessment limited by lack of IV contrast. No signif icant calcifications. No hydronephrosis or hydroureter. LEFT KIDNEY AND URETER: Diffuse atrophy left kidney, stable. AORTA AND RETROPERITONEUM: No aneurysm. No retroperitoneal masses or adenopathy. BOWEL AND PERITONEAL CAVITY: No obvious masses or inflammatory changes. No free fluid. APPENDIX: Normal. PELVIS, BLADDER, AND ABDOMINAL WALL:No abnormal masses. No free fluid. Bladder normal. Post hysterec nela. Normal size ovaries BONES: No significant findings. OTHER: No other significant finding. IMPRESSION: Improvement in sigmoid colon diverticulitis as compared to 07/19/2018. Resolved pericoli c inflammation. COMMENT: Quality ID # 436: Final reports with documentation of one or more dose reduction techniques (e.g., Automated exposure control, adjustment of the mA and/or kV according to patient size, use of iterative reconstruction technique) TECHNICAL DOCUMENTATION: JOB ID: [id number] [employer]- All Rights Reserved Reading location - IP/workstation name: [email or web address]
--- NOTE | 2018-07-23 16:44 | PDOC PROGRESS REPORT ---
Subjective Reason For Visit: ACUTE SIGMOID DIVERTICULITIS WITH ABSCESS Physical Exam Vital Signs: Temp Pulse Resp BP Pulse Ox 98.0 F 75 16 149/71 H 94 07/23/18 15:40 07/23/18 15:40 07/23/18 15:40 07/23/18 15:40 07/23/18 15:40 Intake & Output 07/22/18 07/23/18 07/24/18 06:59 06:59 06:59 Intake Total 3380 1250 1000 Output Total 975 200 Balance 2405 1050 1000 Weight 78.7 kg 76.7 kg Results Laboratory Results: 07/22/18 05:52 07/22/18 05:52 Impressions: Abdomen/Pelvis CT 07/23/18 00:00 IMPRESSION: Improvement in sigmoid colon diverticulitis as compared to 07/19/2018. Resolved pericolic inflammation. Assessment & Plan - Diagnosis (1) Acute diverticulitis Is this a current diagnosis for this admission?: Yes Plan: Patient had follow-up CT as per patient request. CT scan demonstrated marked improvement with no abscess. Patient has had a bowel movement and feels well. Will DC patient home with antibiotics and Colace and will follow up with the patient and also surgical clinic in about a week. we will plan colonoscopy in the next several weeks as an outpatient.
[2018-07-23 17:33] VITALS: BP 186/72
--- NOTE | 2018-07-23 21:16 | PDOC DISCHARGE SUMMARY ---
General - Admit/Disc Date/PCP Admission Date/Primary Care Provider: 07/19/18 23:37 DILCIA PISANO MD Discharge Date: 07/23/18 - Discharge Diagnosis (1) Acute diverticulitis Is this a current diagnosis for this admission?: Yes Summary: Improved. CT scan reveals inflammation with possible diverticular abscess. There was no free air. It did not appear that there was a perforation. Blood cultures negative at 72 hours; patient is afebrile with a normal WBC. Repeat CT Abd/Pelvis w/ oral contrast day of discharge demonstrates improved diverticulitis and resolution of the pericolic inflammation. The patient was been admitted to the medical floor and empirically placed on IV Flagyl and Cipro. She has been transitioned to oral Flagyl and Cipro to continue for a total of 10 days of therapy. Surgery was consulted; appreciate their valuable assistance. Patient is to follow up with the [facility] in one week to discuss follow up endoscopy. At time of discharge, patient was in stable condition and tolerating a regular diet with out increased abdominal discomfort, nausea, vomiting, or diarrhea. She is discharged to home with self care. She is recommended to complete her antibiotic course of therapy. She is instructed to follow up with her PCP within 1 week and with the surgical clinic as scheduled. She is encouraged to drink plenty of fluids, utilize Colace to prevent constipation, and eat as tolerated. She is advised to return tot eh emergency department as needed for concerning symptoms. (2) Anemia Is this a current diagnosis for this admission?: Yes Summary: Stable. Patient reports a history of iron deficiency anemia. Hgb 13-> 12-> 11.3-> 12.2 No source of active bleeding. Slight downward trend is likely related to IVF. (3) Dyslipidemia Is this a current diagnosis for this admission?: No Summary: She reports a history of hyperlipidemia. Continue home dose Crestor. (4) Hypertension Is this a current diagnosis for this admission?: Yes Summary: BP remained elevated despite adequate control of abdominal discomfort; 175/70 Improved with addition of lisinopril to her home dose verapamil; 145/77 Recommend low sodium diet. Advised to discuss additional dietary and lifestyle modifications with PCP at follow up appointment. - Additional Information Discharge Diet: As Tolerated, Cardiac Discharge Activity: Activity As Tolerated, Balance Activity w/Rest Prescriptions: Ciprofloxacin HCl [Cipro 750 mg Tablet] 750 mg PO Q12 #14 tablet Docusate Sodium [Colace 100 mg Capsule] 100 mg PO BID #60 capsule Lisinopril [Prinivil 10 mg Tablet] 20 mg PO DAILY #30 tablet Metronidazole [Flagyl 500 mg Tablet] 500 mg PO Q8 #21 tablet Home Medications: Fluticasone Propionate [Flonase Nasal Mesa 50 Mcg/Mesa 16 gm] 1 spray NASL DAILY 07/20/18 Rosuvastatin Calcium [Crestor 10 mg Tablet] 10 mg PO QHS 07/20/18 Verapamil HCl [Calan 120 mg Tablet] 120 mg PO DAILY 07/20/18 Acetaminophen [Tylenol 325 mg Tablet] 650 mg PO Q4HP PRN tablet 07/23/18 Benzonatate [Tessalon Perles 100 mg Capsule] 200 mg PO Q8HP PRN capsule Ciprofloxacin HCl [Cipro 750 mg Tablet] 750 mg PO Q12 #14 tablet 07/23/18 Docusate Sodium [Colace 100 mg Capsule] 100 mg PO BID #60 capsule 07/23/18 Fluticasone Propionate [Flonase Nasal Mesa 50 Mcg/Mesa 16 gm] 1 spray NASL Q12 spray.pump 07/23/18 Lisinopril [Prinivil 10 mg Tablet] 20 mg PO DAILY #30 tablet 07/23/18 Metronidazole [Flagyl 500 mg Tablet] 500 mg PO Q8 #21 tablet 07/23/18 Verapamil HCl [Calan Sr 120 mg Tablet.sa] 120 mg PO DAILY tablet.sa 07/23/18 History of Present Illness History of Present Illness: Per H&P by Dr. Erwin: PENELOPE FOWLER is a 72 year old female with a history of hypertension and dyslipidemia who presented to the emergency room with acute onset of lower abdominal pain mainly in the left lower quadrant with associated loose bowel movements as well as chills for the last 3 days. She denies any measured fever. She has been noticing minor bleeding with her symptoms with no melena. Upon presentation to the emergency room her blood pressure was elevated 162/77 with otherwise normal vital signs. She was afebrile. Labs showed normal CBC and her calcium was 10.5. Urinalysis showed moderate leukocyte esterase and 10 WBCs. Her abdominal pelvic CT scan revealed acute sigmoid duct colitis with pos sibly tiny abscess measuring 10 mm x 10 mm She was given 50 mcg of IV fentanyl and a liter bolus of IV lactated Ringer. She was ordered IV Rocephin and Flagyl. She will be admitted to medical monitored bed for further evaluation and management. Physical Exam Vital Signs: Temp Pulse Resp BP Pulse Ox 98.0 F 75 16 186/72 H 94 07/23/18 17:32 07/23/18 17:32 07/23/18 17:32 07/23/18 17:32 07/23/18 17:32 Intake & Output 07/22/18 07/23/18 07/24/18 06:59 06:59 06:59 Intake Total 3380 1250 1480 Output Total 975 200 Balance 2405 1050 1480 Weight 78.7 kg 76.7 kg General appearance: PRESENT: no acute distress, well-developed, well-nourished - overweight Head exam: PRESENT: atraumatic, normocephalic Eye exam: PRESENT: conjunctiva pink, EOMI, PERRLA. ABSENT: scleral icterus Ear exam: PRESENT: normal external ear exam Mouth exam: PRESENT: moist, tongue midline Neck exam: ABSENT: carotid bruit, JVD, lymphadenopathy, thyromegaly Respiratory exam: PRESENT: clear to auscultation rainer. ABSENT: rales, rhonchi, wheezes Cardiovascular exam: PRESENT: RRR. ABSENT: diastolic murmur, rubs, systolic murmur Pulses: PRESENT: normal dorsalis pedis pul Vascular exam: PRESENT: normal capillary refill GI/Abdominal exam: PRESENT: normal bowel sounds, soft. ABSENT: distended, guarding, mass, organolmegaly, rebound, tenderness Rectal exam: PRESENT: deferred Extremities exam: PRESENT: full ROM. ABSENT: calf tenderness, clubbing, pedal edema Neurological exam: PRESENT: alert, awake, oriented to person, oriented to place, oriented to time, oriented to situation, CN II-XII grossly intact. ABSENT: motor sensory deficit Psychiatric exam: PRESENT: appropriate affect, normal mood. ABSENT: homicidal ideation, suicidal ideation Skin exam: PRESENT: dry, intact, warm. ABSENT: cyanosis, rash Results Laboratory Results: 07/22/18 05:52 07/22/18 05:52 Impressions: Abdomen/Pelvis CT 07/23/18 00:00 IMPRESSION: Improvement in sigmoid colon diverticulitis as compared to 07/19/2018. Resolved pericolic inflammation. Qualifiers - * PATIENT BEING DISCHARGED WITH ANY OF THE FOLLOWING DIAGNOSIS: No Plan Discharge Plan: Patient is discharged to home with self care. Follow-up with primary care provider within 1 week. Follow-up with the [facility] within 1 week; appt scheduled 07/31/18. Take antibiotics as prescribed. Use Colace daily to prevent constipation. Drink plenty of water; eat as tolerated. Return to the emergency room as needed for concerning symptoms. Time Spent: Greater than 30 Minutes
== END 2018-07-23 18:15 | disposition home or self-care (01) | DRG 392 ==
LOC: ER 20:17 → EH 23:37 → 2N 07-20 01:57
PROVIDERS: ADMIT Family Medicine; ATTEND Family Medicine
DX: K57.20 Diverticulitis of large intestine with perforation and abscess without bleeding (principal); D50.9 Iron deficiency anemia, unspecified; E78.5 Hyperlipidemia, unspecified; I10 Essential (primary) hypertension; M19.90 Unspecified osteoarthritis, unspecified site; Z79.899 Other long term (current) drug therapy; Z88.3 Allergy status to other anti-infective agents; Z91.040 Latex allergy status; Z90.710 Acquired absence of both cervix and uterus
CPT/HCPCS: 36415; 74176; 74177; 80048; 80053; 81001; 83690; 85025; 87040; 87086; 87088; 87186; 96374; 99285; J0360; J0696; J0744; J2270; J2405; J3010; J3490; J7030; J7120